=== PATIENT | female | born 1990 | race Two or more races ===

== ENCOUNTER → 2020-03-09 13:46 | Outpatient (BNVA) | payer OTHER, MEDICAID, SELFPAY | PROVIDERS: PCP Internal Medicine; Visit Provider Internal Medicine | DX: Z76.89 Persons encountering health services in other specified circumstances (principal) ==

== ENCOUNTER 2020-03-28 10:44 | Emergency (ER) | payer OTHER, MEDICAID, SELFPAY ==
[2020-03-28 10:49] VITALS: BP 124/60; PULSE 96; RESP 18; TEMP 37.4; O2SAT 99; BMI 27.3
--- NOTE | 2020-03-28 11:45 | ECG_ITS ---
Test Reason : WEAKNESS Blood Pressure : / mmHG Vent. Rate : 065 BPM Atrial Rate : 065 BPM P-R Int : 136 ms QRS Dur : 080 ms QT Int : 378 ms P-R-T Axes : 046 047 040 degrees QTc Int : 393 ms Normal sinus rhythm with sinus arrhythmia Normal ECG No previous ECGs available Referred By: Kathia Christina Electronically Signed By:NAZANIN FLANAGAN MD
--- NOTE | 2020-03-28 12:18 | ED.GENADULT ---
HPI - General Adult General Chief complaint: General Medical Stated complaint: shingles, sob Time Seen by Provider: 03/28/20 11:35 Source: patient Mode of arrival: ambulatory Limitations: no limitations History of Present Illness HPI narrative: 30yoF who is [id number] who is currently 12 weeks due date September 2019 with PMHx of shingles presenting to the ED c c/o shingles rash to upper lip and a separate complaint of sob and b/l anterior wall chest discomfort for the past week. Reports in June there were new rugs place and since then she has been having intermittent asthma exacerbations although this feels worse. Patient reports the shortness of breath is worse with any type of activity including walking, laying down and even speaking. She denies a cough today along with wheezing. Denies any OBGYN related complaints including fevers, abdominal pain, hematuria, vaginal discharge, vaginal bleeding or dysuria. Patient reports she has a follow-up appointment with her OBGYN at [facility] on April 04. Related Data Home Medications Medication Instructions Recorded Confirmed ibuprofen 800 mg tablet 800 mg PO TID 03/09/20 multivitamin 1 cap PO DAILY 03/09/20 Previous Rx's Medication Instructions Recorded valacyclovir 500 mg tablet 500 mg PO BID 10 Days #20 tab 03/09/20 albuterol sulfate 2 inh INHALATION QID PRN #8.5 g 03/28/20 valacyclovir 500 mg PO BID 3 Days #6 tab 03/28/20 Allergies Allergy/AdvReac Type Severity Reaction Status Date / Time No Known Allergies Allergy Verified 03/28/20 10:56 [No Known Allergies*] Review of Systems Review of Systems: Constitutional : No Fever, No Chills, No Night Sweats, No Fatigue, No Malaise ENT/Mouth : No Hearing loss, No Ear Pain, No Nasal Congestion, No Sinus Pain, No Hoarseness, No sore throat Eyes: No Eye Pain, No Swelling, No Redness, No Foreign Body, No Discharge, No Vision Changes Cardiovascular : + SOB, + Dyspnea on Exertion, + Orthopnea, No Edema, No extremity swelling, No Palpitations Respiratory : No Cough, No Sputum, No Wheezing, No Dyspnea Gastrointestinal : No Nausea, No Vomiting, No Diarrhea, No abdominal Pain, No Hematochezia, No Melena Genitourinary : No irregular bleeding, No Dysuria, No Urinary Frequency, No Hematuria, No Urinary Incontinence, No Urgency, No Flank Pain, No Urinary Flow Changes, No Hesitancy, Vaginal bleeding or discharge Musculoskeletal : No joint pain, No Myalgias, No Joint Swelling Skin : + rash, No Skin Lesions, Neuro : No Weakness, No Numbness, No Paresthesias, No Dizziness, No Headache Heme/Lymph: No Lymphadenopathy Yes all other systems are reviewed and are negative [facility] Past Medical History Attestation statement: The following information was validated with the patient. Medical History (Updated 03/28/20 @ 15:28 by CIELO Wang) Herpes zoster conjunctivitis of left eye Surgical History (Updated 03/28/20 @ 10:55 by Sri Kenney) History of bladder surgery Social History Social History Advance Directives: No Advance Directives Information Provided: Yes Physical Exam Vital Signs: Vital Signs: Vital Signs Temp Pulse Resp BP Pulse Ox 03/28/20 10:49 99.4 F 96 18 124/60 99 Body Mass Index 27.3 vital signs have been reviewed as normal and appeared to be correct. Blood pressure normal. Heart rate normal. Respiration rate normal. Temperature normal. Oxygen saturation normal. Appearance: Alert. Oriented X3. No acute distress. Head: Normal external exam. Normocephalic. Atraumatic. No Nayak signs noted. No raccoon eyes noted Eyes: PERRLA. EOMI. Conjunctiva and sclera normal. Eyelids normal. ENT: EAC normal. TM's Normal. Pharynx normal. Uvula midline. Moist mucous membranes. No trismus noted. No drooling noted. No muffled voice noted. Neck: Normal inspection. Neck supple. FROM. No adenopathy. Thyroid Normal. No meningeal signs. No neck mass noted. CVS: Normal heart rate and rhythm. Heart sound normal. No murmurs noted. Pulses normal throughout. Respiratory: No respiratory distress. Painless inspiration. Breath sounds normal. No wheezes/rales/rhonchi noted. Chest nontender. No accessory muscle usage noted or decreased air movement noted. Abdomen: Soft and nontender. Bowel sounds normal in all 4 quadrants. No distention noted. No organomegaly noted. No visible injury noted. Back: No CVA tenderness. Full range of motion noted. Skin: To upper lip there are shallow painful vesicles on an erythematous base consistent with herpes simplex. No streaking/induration/drainage noted. Otherwise the rest of the Skin warm and dry. Normal skin color. Normal skin turgor. No lacerations noted. Extremities: No lower extremity edema. Extremities exhibit normal range of motion. Extremities nontender. Neuro: Oriented X 3. No motor deficit. No sensory deficit. Reflexes normal. Course Course Course Narrative: 11:45AM - 30yoF who is [id number] who is currently 12 weeks due date September 2019 with PMHx of asthma and shingles presenting to the ED c c/o shingles rash to upper lip and a separate complaint of sob and b/l anterior wall chest discomfort for the past week. The shortness of breath is worse with any type of activity including walking, laying down and speaking. - will start the patient on antivirals for her recurrent shingles infection. - Plan: Labs including D-dimer, EKG then re-evaluate. Patient initially requested a chest x-ray then was told the risks and declined at this time. Reevaluation(s) Reevaluation #1: - D-dimer elevated at 246 otherwise all other labs are within normal limits. Serum quant appropriately elevated. UA within normal limits no evidence of a UTI. - Due to patient's D-dimer being elevated a CTA of her chest was ordered to evaluate for possible PE. Risks and benefits were explained to the patient and she is agreeable to the CTA. Will re-evaluate. Time: 14:36 Reevaluation #2: CTA negative for PE. Will DC home with antivirals for herpes simplex on the upper lip. Along with albuterol inhaler and instructions to return if any new or worsening symptoms to follow-up with primary care/insulation blanket maker as scheduled. Patient understands agrees the plan. Time: 15:29 Medical Decision Making Lab Data Lab results reviewed: Yes I reviewed the patient's lab results. Result diagrams: 03/28/20 12:39 03/28/20 12:39 Labs: Lab Results 03/28/20 03/28/20 03/28/20 Range/Units 12:39 12:39 12:39 WBC 10.0 (4.8-10.8) X10*3/uL RBC 4.05 L (4.20-5.50) X10*6/uL Hgb 12.4 (12.0-16.0) g/dl Hct 37.8 (37-47) % MCV 93.3 (80-98) fL MCH 30.6 (27.0-33.0) pg MCHC 32.8 (31.0-35.0) g/dl RDW 12.2 (11.0-16.0) % Plt Count 281 (160-400) X10*3/uL MPV 9.6 (9.4-12.3) fL Immature Gran % (Auto) 0.3 (0.0-0.4) % Neut % (Auto) 74.0 H (45-73) % Lymph % (Auto) 18.6 L (20-40) % [place] % (Auto) 6.4 (2-11) % Eos % (Auto) 0.3 (0-4) % Baso % (Auto) 0.4 (0-2) % Lymph # (Auto) 1.9 (1.2-4.9) X10*3/uL [place] # (Auto) 0.6 (0.1-1.2) X10*3/uL Eos # (Auto) 0.0 (0.0-0.4) X10*3/uL Baso # (Auto) 0.0 (0.0-0.2) X10*3/uL Abs Immat Gran (auto) 0.03 (0.00-0.03) X10*3/uL Absolute Neuts (auto) 7.4 (2.0-8.3) X10*3/uL Absolute Nucleated RBC 0.000 (0.0-0.012) X10*3/uL Nucleated RBC % (auto) 0.0 (0.0-0.2) /100WBC Hold Purple Top PT 12.1 (10.8-13.0) SEC INR 1.0 (0.9-1.1) D-Dimer NG/ML Sodium 137 (135-145) mmol/L Potassium 4.0 (3.3-5.1) mmol/l Chloride 104 (96-108) mmol/L Carbon Dioxide 22 (22-29) mmol/L Anion Gap 15 (12-20) BUN 7 L (9-16) mg/dL Creatinine 0.58 (0.5-1.4) mg/dL Estim Creat Clear Calc 125.3 Estimated GFR > 60 Random Glucose 82 (60-115) mg/dL Calcium 8.9 (8.4-10.2) mg/dL B-Natriuretic Peptide (<100) pg/mL Beta HCG, Quant mIU/mL Urine Color Urine Appearance Urine pH (5.0-8.0) Ur Specific [place] (1.005-1.025) Urine Protein (NEG-TRACE) MG/DL Urine Glucose (UA) (NEG) MG/DL Urine Ketones (NEG) MG/DL Urine Blood (NEG) Urine Nitrite (NEG) Ur Leukocyte Esterase (NEG) Urine RBC (0) /HPF Urine WBC (0-4) /HPF Ur Squamous Epith Cells /LPF Ur Renal Epithelial Cell /LPF Urine Bacteria /LPF Urine Mucus /LPF 03/28/20 03/28/20 03/28/20 Range/Units 12:39 12:39 12:39 WBC (4.8-10.8) X10*3/uL RBC (4.20-5.50) X10*6/uL Hgb (12.0-16.0) g/dl Hct (37-47) % MCV (80-98) fL MCH (27.0-33.0) pg MCHC (31.0-35.0) g/dl RDW (11.0-16.0) % Plt Count (160-400) X10*3/uL MPV (9.4-12.3) fL Immature Gran % (Auto) (0.0-0.4) % Neut % (Auto) (45-73) % Lymph % (Auto) (20-40) % [place] % (Auto) (2-11) % Eos % (Auto) (0-4) % Baso % (Auto) (0-2) % Lymph # (Auto) (1.2-4.9) X10*3/uL [place] # (Auto) (0.1-1.2) X10*3/uL Eos # (Auto) (0.0-0.4) X10*3/uL Baso # (Auto) (0.0-0.2) X10*3/uL Abs Immat Gran (auto) (0.00-0.03) X10*3/uL Absolute Neuts (auto) (2.0-8.3) X10*3/uL Absolute Nucleated RBC (0.0-0.012) X10*3/uL Nucleated RBC % (auto) (0.0-0.2) /100WBC Hold Purple Top SEE NOTE PT (10.8-13.0) SEC INR (0.9-1.1) D-Dimer 246 NG/ML Sodium (135-145) mmol/L Potassium (3.3-5.1) mmol/l Chloride (96-108) mmol/L Carbon Dioxide (22-29) mmol/L Anion Gap (12-20) BUN (9-16) mg/dL Creatinine (0.5-1.4) mg/dL Estim Creat Clear Calc Estimated GFR Random Glucose (60-115) mg/dL Calcium (8.4-10.2) mg/dL B-Natriuretic Peptide (<100) pg/mL Beta HCG, Quant 35930 mIU/mL Urine Color Urine Appearance Urine pH (5.0-8.0) Ur Specific [place] (1.005-1.025) Urine Protein (NEG-TRACE) MG/DL Urine Glucose (UA) (NEG) MG/DL Urine Ketones (NEG) MG/DL Urine Blood (NEG) Urine Nitrite (NEG) Ur Leukocyte Esterase (NEG) Urine RBC (0) /HPF Urine WBC (0-4) /HPF Ur Squamous Epith Cells /LPF Ur Renal Epithelial Cell /LPF Urine Bacteria /LPF Urine Mucus /LPF 03/28/20 03/28/20 Range/Units 12:39 12:39 WBC (4.8-10.8) X10*3/uL RBC (4.20-5.50) X10*6/uL Hgb (12.0-16.0) g/dl Hct (37-47) % MCV (80-98) fL MCH (27.0-33.0) pg MCHC (31.0-35.0) g/dl RDW (11.0-16.0) % Plt Count (160-400) X10*3/uL MPV (9.4-12.3) fL Immature Gran % (Auto) (0.0-0.4) % Neut % (Auto) (45-73) % Lymph % (Auto) (20-40) % [place] % (Auto) (2-11) % Eos % (Auto) (0-4) % Baso % (Auto) (0-2) % Lymph # (Auto) (1.2-4.9) X10*3/uL [place] # (Auto) (0.1-1.2) X10*3/uL Eos # (Auto) (0.0-0.4) X10*3/uL Baso # (Auto) (0.0-0.2) X10*3/uL Abs Immat Gran (auto) (0.00-0.03) X10*3/uL Absolute Neuts (auto) (2.0-8.3) X10*3/uL Absolute Nucleated RBC (0.0-0.012) X10*3/uL Nucleated RBC % (auto) (0.0-0.2) /100WBC Hold Purple Top PT (10.8-13.0) SEC INR (0.9-1.1) D-Dimer NG/ML Sodium (135-145) mmol/L Potassium (3.3-5.1) mmol/l Chloride (96-108) mmol/L Carbon Dioxide (22-29) mmol/L Anion Gap (12-20) BUN (9-16) mg/dL Creatinine (0.5-1.4) mg/dL Estim Creat Clear Calc Estimated GFR Random Glucose (60-115) mg/dL Calcium (8.4-10.2) mg/dL B-Natriuretic Peptide < 10 (<100) pg/mL Beta HCG, Quant mIU/mL Urine Color YELLOW Urine Appearance HAZY Urine pH 7.5 (5.0-8.0) Ur Specific [place] 1.020 (1.005-1.025) Urine Protein NEG (NEG-TRACE) MG/DL Urine Glucose (UA) NEG (NEG) MG/DL Urine Ketones NEG (NEG) MG/DL Urine Blood NEG (NEG) Urine Nitrite NEG (NEG) Ur Leukocyte Esterase TRACE H (NEG) Urine RBC 0 (0) /HPF Urine WBC 5-9 H (0-4) /HPF Ur Squamous Epith Cells 1+ /LPF Ur Renal Epithelial Cell 1+ /LPF Urine Bacteria 1+ /LPF Urine Mucus 1+ /LPF Imaging Data CTA of chest for PE: Attestation: I personally reviewed and interpreted this imaging study as follows: Radiologist's impression: IMPRESSION: Normal CT chest. No evidence of pulmonary embolism. VTE: negative ECG Data Attestation: I personally reviewed and interpreted this ECG as follows: Interpretation: Normal sinus rhythm with a ventricular rate of 65 with a normal CO interval, normal QRS duration and normal QT/QTC interval. No acute ischemic changes. No prior EKGs to compare to. Critical Care Time Critical Care Time Critical Care Time: Yes Total Critical Care Time: 60 Attestation: I personally attest to this time spent taking care of the patient Discharge Plan Discharge Clinical Impression: Herpes labialis Dyspnea Qualifiers: Dyspnea type: unspecified Qualified Code(s): R06.00 - Dyspnea, unspecified Patient Disposition: Home, Self-Care Instructions: Oral Herpes Simplex Virus Infections (ED), Dyspnea (ED) Prescriptions: New valacyclovir 1 gram tablet 500 mg PO BID 3 Days Qty: 6 RF: 3 albuterol sulfate 90 mcg/actuation HFA aerosol inhaler 2 inh inhalation QID PRN (Reason: shortness of breath or wheezing) Qty: 8.5 RF: 0 No Action ibuprofen 800 mg tablet 800 mg PO TID RF: 0 multivitamin Capsule 1 cap PO DAILY RF: 0 valacyclovir [Valtrex] 500 mg tablet 500 mg PO BID 10 Days Qty: 20 RF: 1 Referrals: Shirin Sin MD [Primary Care Provider] - 2 days Stand Alone Forms: Work/School Release Print Language: Tamazight
[2020-03-28 13:03] LABS: MANUAL DIFF FLAG NO
[2020-03-28 13:08] LABS: Glucose Urine UA NEG (NEG); Leukocyte Esterase Urine TRACE (NEG); Nitrite Urine NEG (NEG); PH 7.5 (5.0-8.0); Urine Blood NEG (NEG); Urine Ketones NEG (NEG); Urine Protein NEG (NEG-TRACE)
[2020-03-28 13:09] LABS: Appearance Urine HAZY; Color Urine YELLOW
[2020-03-28 13:18] LABS: Bacteria Urine 1+ /LPF; Mucus Urine 1+ /LPF; RBC Urine 0 /HPF (0); Renal Epithelial Cells Urine 1+ /LPF; Squamous Epithelial Cell Urine 1+ /LPF
[2020-03-28 13:22] LABS: Basophils Percent Auto 0.4 % (0-2); Eosinophils Percent Auto 0.3 % (0-4); Hematocrit 37.8 % (37-47); Hemoglobin 12.4 g/dl (12.0-16.0); Imm Gran Abs Auto 0.03 X10*3/uL (0.00-0.03); Imm Gran Pct Auto 0.3 % (0.0-0.4); Lymphocytes Absolute Auto 1.9 X10*3/uL (1.2-4.9); Lymphocytes Percent Auto 18.6 % (20-40); Mean Corpuscular HGB Conc 32.8 g/dl (31.0-35.0); Mean Corpuscular Hemoglobin 30.6 pg (27.0-33.0); Mean Corpuscular Volume 93.3 fL (80-98); Mean Platelet Volume 9.6 fL (9.4-12.3); Monocytes Absolute Auto 0.6 X10*3/uL (0.1-1.2); Monocytes Percent Auto 6.4 % (2-11); Neutrophils Absolute Auto 7.4 X10*3/uL (2.0-8.3); Platelet Count 281 X10*3/uL (160-400); Prothrombin Time 12.1 SEC (10.8-13.0); Red Blood Count 4.05 X10*6/uL (4.20-5.50); Red Cell Distribution Width 12.2 % (11.0-16.0)
[2020-03-28 13:26] LABS: D Dimer 246 NG/ML
[2020-03-28 13:33] LABS: Anion Gap 15 (12-20); Blood Urea Nitrogen 7 mg/dL (9-16); Calcium 8.9 mg/dL (8.4-10.2); Carbon Dioxide 22 mmol/L (22-29); Chloride 104 mmol/L (96-108); Creatinine Clr Calc Pharmacy 125.3; Estimated Glomerular Filt Rate > 60; Glucose Random 82 mg/dL (60-115); Sodium 137 mmol/L (135-145)
--- NOTE | 2020-03-28 13:44 | CT_ITS ---
EXAMINATION: CT ANGIOGRAM OF THE CHEST WITH AND WITHOUT CONTRAST (CT PULMONARY ANGIOGRAM FOR PE) CLINICAL INFORMATION: Reason for Exam pt c sob/CP 12 weeks COMPARISON: Chest x-ray 12/13/2019 TECHNIQUE: Oral contrast was administered. Prior to contrast administration, noncontrast localization images were obtained. Subsequently, multidetector volumetric imaging was performed from the thoracic inlet to below the diaphragms following the administration of 65 mLOmnipaque 350 intravenous contrast. No contrast reaction reported Sagittal, coronal, and MIP oblique sagittal reformatted images were obtained on the CT workstation, uploaded to PACS, and reviewed. This CT examination was performed using dose optimization techniques as appropriate, variously including the following: *Automated exposure control *Adjustment of mA and/or kV according to patient size (this includes techniques or standardized protocols for targeted exams where dose is matched to indication/reason for exam; i.e. extremities or head) *Use of iterative reconstruction technique Total exam dose-length product 159 mGy-cm FINDINGS: QUALITY OF STUDY/CONTRAST BOLUS: Satisfactory. PULMONARY ARTERIES: No central or segmental pulmonary emboli. THORACIC AORTA: No aneurysm or dissection. LUNG: No focal consolidation, nodules or masses. PLEURA: No pleural effusion or pneumothorax. MEDIASTINUM: Normal heart size. No pericardial effusion. No hilar or mediastinal lymphadenopathy. No evidence of septal bowing or right heart strain. CHEST WALL/AXILLA: No axillary or internal mammary lymphadenopathy. OSSEOUS STRUCTURES: No acute or suspicious osseous abnormality. UPPER ABDOMEN: Unremarkable. No reflux of contrast into the hepatic veins to suggest elevated right heart pressures. CT/CT angio chest PE protocol IMPRESSION: Normal CT chest. No evidence of pulmonary embolism. VTE: negative
--- NOTE | 2020-03-28 13:56 | PC.NURSE ---
pt without sob no vomiting but reports nausea iv access gained
[2020-03-28 14:00] VITALS: BP 118/63; PULSE 81; RESP 16; TEMP 37.4; O2SAT 99
[2020-03-28 14:09] LABS: B Type Natriuretic Peptide < 10 pg/mL (<100)
[2020-03-28] MEDS: 0.9 % Sodium Chloride 1,000 ML 999 ML IVCONT (14:09)
[2020-03-28 14:12] LABS: HCG Quantitative 56633 mIU/mL
[2020-03-28] MEDS: iohexoL 350 MG/ML 100 ML INFUS..BTL 65 ML IV (14:54)
== END 2020-03-28 16:12 | disposition home or self-care (01) ==
PROVIDERS: Physician Assistant Medical; Emergency Provider Emergency Medicine; PCP Internal Medicine
DX: B00.1 Herpesviral vesicular dermatitis (principal); B02.9 Zoster without complications; R06.02 Shortness of breath; Z79.899 Other long term (current) drug therapy
CPT/HCPCS: 36415; 71275; 80048; 81001; 83880; 84702; 85025; 85379; 85610; 87086; 93005; 96360; 99284; 99291; Q9967

== ENCOUNTER 2020-04-07 15:20 | Emergency (ER) | payer OTHER, MEDICAID, SELFPAY ==
[2020-04-07 15:52] VITALS: BP 112/58; PULSE 82; RESP 18; TEMP 37.3; O2SAT 98; BMI 30.4
--- NOTE | 2020-04-07 16:12 | ED_ITS ---
HPI - General Adult General Chief complaint: General Medical Stated complaint: Headaches/exposed to Covid Time Seen by Provider: 04/07/20 15:32 Source: patient Mode of arrival: ambulatory History of Present Illness HPI narrative: 30yoF who is [id number] who is currently 12 weeks , with PMHx shingles presenting to the ED requesting COVID-19 testing due to co-worker testing positive yesterday. Reports mild headache, chronic SOB due to asthma, unchanged, and chills. Patient was recently seen and treated in the ED on 03/28 for SOB/CP, had full workup including CTA that was negative for PE. Patient reports symptoms are unchanged since that visit. Denies fever, CP, new or worsening SOB, abdominal pain, nausea/vomiting, dysuria/hematuria, vaginal bleeding or discharge Onset (ago): day(s) Related Data Home Medications Medication Instructions Recorded Confirmed ibuprofen 800 mg tablet 800 mg PO TID 03/09/20 multivitamin 1 cap PO DAILY 03/09/20 Previous Rx's Medication Instructions Recorded valacyclovir 500 mg tablet 500 mg PO BID 10 Days #20 tab 03/09/20 acyclovir 800 mg PO BID 5 Days #10 tab 03/28/20 levalbuterol HCl [Xopenex] 0.63 mg INHALATION TID PRN #72 ml 03/28/20 levalbuterol tartrate [Xopenex HFA] 2 puff INHALATION Q4-6H PRN #15 g 03/28/20 Allergies Allergy/AdvReac Type Severity Reaction Status Date / Time No Known Allergies Allergy Verified 03/28/20 10:56 [No Known Allergies*] Review of Systems Review of Systems: Constitutional: No Weight loss, No Fever, + Chills ENT/Mouth: No Ear Pain, No Nasal Congestion, No Sinus Pain, No Hoarseness, No sore throat, +headache Cardiovascular: No Chest Pain, +chronic SOB Respiratory: No Cough, No Sputum, No Wheezing Gastrointestinal: No Nausea, No Vomiting, No Diarrhea, No Constipation, No Abdominal pain Genitourinary:, No Dysuria, No Urinary Frequency, No Hematuria Musculoskeletal: No joint pain, No Myalgias, No Joint Swelling Skin: No Skin Lesions, No rash Yes all other systems are reviewed and are negative PMFSH Past Medical History Attestation statement: The following information was validated with the patient. Source: old records reviewed and nursing notes reviewed Medical History (Updated 03/29/20 @ 00:00 by Rian Hubbard) Herpes zoster conjunctivitis of left eye Surgical History (Updated 03/28/20 @ 10:55 by Sri Kenney) History of bladder surgery Social History Social History Alcohol intake: never Smoked in Last 30 Days: No Use of substances other than those prescribed or required for medical reasons: No Advance Directives: No Advance Directives Information Provided: Yes Physical Exam Vital Signs: Vital Signs: Last Vital Signs Temp 99.1 F 04/07/20 15:52 Pulse 82 04/07/20 15:52 Resp 18 04/07/20 15:52 BP 112/58 L 04/07/20 15:52 Pulse Ox 98 04/07/20 15:52 Body Mass Index 30.4 Const: General: cooperative and healthy appearing Orientation/consciousness: patient oriented x3 Limitations: no limitations HENMT: Head: Yes normal to inspection Ears: hearing grossly normal bilaterally General nose exam: Normal external nose present Face and sinus: Yes normal facial exam Eyes: General: appearance normal, both eyes and all related structures EOM: EOMs intact bilaterally Neck: Neck: Yes normal visual inspection Resp: Effort & Inspection: normal respiratory effort Auscultation: clear to auscultation bilaterally, no crackles, no rhonchi and no wheezes Cardio: Rate: regular rate Heart sounds: S1 normal heart sound present and S2 normal heart sound present GI: Inspection: Yes normal to inspection Palpation (GI): Soft to palpation, nontender, no guarding and not rigid Skin: Rashes: no rashes Wounds: no wounds Neuro: General: patient oriented x3 Gait exam (Neuro): Normal gait present Extrem: General: Yes normal to inspection Medical Decision Making MDM Narrative Medical decision making narrative: 30yoF who is [id number] who is currently 12 weeks , with PMHx shingles presenting to the ED requesting COVID-19 testing due to co-worker testing positive yesterday. Reports mild headache, chronic SOB due to asthma, unchanged, and chills. On exam VSS, NAD/well- appearing, lungs CTA, no related complaints. Concern for viral syndrome/COVID-19 Plan: COVID-19 testing, OBGYN follow-up Discharge Plan Discharge Prescriptions: No Action levalbuterol HCl [Xopenex] 0.63 mg/3 mL solution for nebulization 0.63 mg inhalation TID PRN (Reason: shortness of breath or wheezing) Qty: 72 RF: 0 levalbuterol tartrate [Xopenex HFA] 45 mcg/actuation HFA aerosol inhaler 2 puff inhalation Q4-6H PRN (Reason: shortness of breath or wheezing) Qty: 15 RF: 0 acyclovir 800 mg tablet 800 mg PO BID 5 Days Qty: 10 RF: 0 ibuprofen 800 mg tablet 800 mg PO TID RF: 0 multivitamin Capsule 1 cap PO DAILY RF: 0 valacyclovir [Valtrex] 500 mg tablet 500 mg PO BID 10 Days Qty: 20 RF: 1
== END 2020-04-07 16:26 | disposition home or self-care (01) ==
PROVIDERS: Physician Assistant; Emergency Provider Emergency Medicine; PCP Internal Medicine
DX: O26.91 Pregnancy related conditions, unspecified, first trimester (principal); R51.9 Headache, unspecified; Z20.828 Contact with and (suspected) exposure to other viral communicable diseases; Z79.899 Other long term (current) drug therapy; Z3A.12 12 weeks gestation of pregnancy
CPT/HCPCS: 99283; 99284; U0003

== ENCOUNTER → 2020-05-02 09:21 | Outpatient (BNVA) | payer OTHER, MEDICAID, SELFPAY | PROVIDERS: PCP Internal Medicine; Referring Provider Internal Medicine; Visit Provider Student in an Organized Health Care Education/Training Program | DX: Z76.89 Persons encountering health services in other specified circumstances (principal) ==

== ENCOUNTER → 2020-05-22 10:09 | Outpatient (BNVA) | payer OTHER, MEDICAID, SELFPAY | PROVIDERS: Visit Provider Student in an Organized Health Care Education/Training Program | DX: Z76.89 Persons encountering health services in other specified circumstances (principal) ==

== ENCOUNTER 2020-07-25 09:59 | Outpatient (REF) | payer OTHER, MEDICAID, SELFPAY | END 2020-07-25 10:00 | disposition home or self-care (01) | LOC: HO.LAB 09:59 | PROVIDERS: Visit Provider Internal Medicine | DX: Z20.822 Contact with and (suspected) exposure to COVID-19 (principal) | CPT/HCPCS: 36415; C9803; U0003; U0005 ==

== ENCOUNTER → 2020-07-27 09:47 | Outpatient (BNVA) | payer OTHER, MEDICAID, SELFPAY | PROVIDERS: PCP Internal Medicine; Visit Provider Internal Medicine ==

== ENCOUNTER 2020-07-28 08:29 | Emergency (ER) | payer OTHER, MEDICAID, SELFPAY ==
[2020-07-28 09:05] VITALS: BP 130/68; PULSE 98; RESP 17; TEMP 36.7; O2SAT 98; BMI 33.0
[2020-07-28] MEDS: Tetracaine HCl/PF 0.5% Oph Sol 4 ML DROPS 1 DROP EYE-BOTH (09:11)
[2020-07-28] MEDS: Fluorescein Sodium STRIP 1 STRIP EYE-BOTH (09:11)
--- NOTE | 2020-07-28 09:58 | ED_ITS ---
HPI - Eye Problem General Chief complaint: Eye Problems Stated complaint: EYE ISSUE Time Seen by Provider: 07/28/20 08:49 Source: patient Mode of arrival: ambulatory Limitations: no limitations History of Present Illness HPI Narrative: Patient comes to emergency room complaining of an outbreak of herpes zoster in her left eye. Patient states she has had multiple episodes of herpes zoster on the left eye throughout her life. However, at this time she is at 29 weeks of gestational age in her 2nd , states in this she has had for outbreaks. Patient complaining of vesicle starting to appear ar ound upper and lower eyelids. Patient has no actual eye pain, denies pain with ocular movement. No fever no chills, denies rash anywhere else in her body. Patient states that yesterday she went to see her monogram machine operator, states she does not remember the name, it is possible that it was Dr. Hall. She was given erythromycin ointment for her eye, since yesterday she did not have any vesicles. Patient states that she got a prescription for acyclovir to be picked up at her pharmacy in case that the rash got worse. The rash did progress, however the patient wanted to be checked at the emergency room because the patient did not know if the rash had progressed enough to start the antiviral medication. Related Data Home Medications Medication Instructions Recorded Confirmed multivitamin 1 cap PO DAILY 03/09/20 05/02/20 albuterol sulfate 0.63 mg/3 mL 0.63 mg INHALATION Q4-6H PRN 05/02/20 05/02/20 solution for nebulization albuterol sulfate 90 mcg/actuation 2 puff INHALATION Q6H PRN 05/02/20 05/02/20 aerosol inhaler Previous Rx's Medication Instructions Recorded levalbuterol HCl [Xopenex] 0.63 mg INHALATION TID PRN #72 ml 03/28/20 levalbuterol tartrate [Xopenex HFA] 2 puff INHALATION Q4-6H PRN #15 g 03/28/20 Allergies Allergy/AdvReac Type Severity Reaction Status Date / Time No Known Allergies Allergy Verified 05/22/20 10:10 [No Known Allergies*] Review of Systems Review of Systems: Constitutional : No Weight loss, No Fever, No Chills, No Night Sweats, No Fatigue, No Malaise ENT/Mouth : No Hearing loss, No Ear Pain, No Nasal Congestion, No Sinus Pain, No Hoarseness, No sore throat, No Rhinorrhea, No Swallowing Difficulty Eyes: No Eye Pain, small vesicles in the medial aspect of the eye lids superior and inferior Cardiovascular : No Chest Pain, No SOB, No Dyspnea on Exertion, No Orthopnea, No Edema, No Palpitations Respiratory : No Cough, No Sputum, No Wheezing, No Smoke Exposure, No Dyspnea Gastrointestinal : No Nausea, No Vomiting, No Diarrhea, No Constipation, No abdominal Pain, No Hematochezia, No Melena Genitourinary : no irregular bleeding, No Dysuria, No Urinary Frequency, No Hematuria, No Urinary Incontinence, No Urgency, No Flank Pain, No Urinary Flow Changes, No Hesitancy Musculoskeletal : No joint pain, No Myalgias, No Joint Swelling Skin : No Skin Lesions, No rash Neuro : No Weakness, No Numbness, No Paresthesias, No Loss of Consciousness, No Dizziness, No Headache Psych : No Anxiety/Panic, No Depression, No SI/HI/AH/VH, No Social Issues, Heme/Lymph: No Bruising, No Bleeding,No Lymphadenopathy Endocrine : No Polyuria, No Polydipsia, No Temperature Intolerance PMF Past Medical History Medical History Annual physical exam Herpes zoster conjunctivitis of left eye Shortness of breath at rest Surgical History History of bladder surgery History of wisdom tooth extraction Family History Family History Father Hypertension Prostate cancer Chronic mental illness Substance abuse Mother Low blood pressure Sister Heart disease Paternal Grandmother Breast cancer Paternal Aunt Breast cancer Family/Other Depression Social History Social History Alcohol intake: never Smoking Status: Never smoker Advance Directives: No Advance Directives Information Provided: No Physical Exam Vital Signs: Vital Signs: Last Vital Signs Temp 98.0 F 07/28/20 09:05 Pulse 98 07/28/20 09:05 Resp 17 07/28/20 09:05 BP 130/68 07/28/20 09:05 Pulse Ox 98 07/28/20 09:05 Body Mass Index 33.0 Appearance: Alert. Oriented X3. No acute distress. Eyes: Pupils equal, round and reactive to light. No pain with eye movements. Fluorescein stain does not show any dendritic lesions in sclera or cornea. Patient does have small vesicles at this time not fluid-filled in upper and lower eyelids of the left eye in the medial aspect, Eye pressure 15 to 18 mmHg ENT: Pharynx normal. Neck: Normal inspection. Neck supple. No lymph nodes noted. No crepitus CVS: Normal heart rate and rhythm. Pulses normal. Normal S1 and S2 Respiratory: No respiratory distress. Breath sounds normal. No Wheezing. No rales Abdomen: Soft and nontender. No rigidity. No distention. good BS x4 Skin: Skin warm and dry. Normal skin color. Normal skin turgor. Extremities: No lower extremity edema. No lower extremity edema. No Lacerations. No Rash Neuro: Oriented X 3. No motor deficit. No sensory deficit. Moving all extermities. No slurred speech. Course Course Course Narrative: I discussed with our pharmacist whether the patient should be on Valtrex versus acyclovir. Our pharmacist recommend Valtrex, as it does not need does readjustment. I also discussed the patient with Dr. Hebert, we will go ahead and follow ophthalmology's treatment recommendation. I spoke with Dr. Hall, Dr. Hall spoke to the patient's OBGYN yesterday and it was agreed that acyclovir is the treatment of choice for the patient Patient called her pharmacy and confirmed that the prescription is ready for pickup. I discussed with the patient that Dr. Hall wants to see the patient on Thursday. Discharge Plan Discharge Clinical Impression: Herpes zoster conjunctivitis of left eye Patient Disposition: Home, Self-Care Instructions: Shingles (ED) Additional Instructions: Please call your monogram machine operator on Thursday. Please follow-up with your primary care physician tomorrow. If you have any worsening or new symptoms, please return to the emergency room or call 911 Prescriptions: No Action levalbuterol HCl [Xopenex] 0.63 mg/3 mL solution for nebulization 0.63 mg inhalation TID PRN (Reason: shortness of breath or wheezing) Qty: 72 RF: 0 levalbuterol tartrate [Xopenex HFA] 45 mcg/actuation HFA aerosol inhaler 2 puff inhalation Q4-6H PRN (Reason: shortness of breath or wheezing) Qty: 15 RF: 0 albuterol sulfate 90 mcg/actuation HFA aerosol inhaler 2 puff inhalation Q6H PRNRF: 0 albuterol sulfate 0.63 mg/3 mL solution for nebulization 0.63 mg inhalation Q4-6H PRNRF: 0 multivitamin Capsule 1 cap PO DAILY RF: 0 Referrals: Jorge A Hall [Physician] - 2 days
--- NOTE | 2020-07-28 10:56 | PC.NURSE ---
NO COMPLAINTS OF ABDOMINAL OR BACK PAIN, NO VAG BLEEDING.
== END 2020-07-28 11:01 | disposition home or self-care (01) ==
PROVIDERS: Emergency Provider Emergency Medicine; PCP Internal Medicine
DX: B02.31 Zoster conjunctivitis (principal); H57.12 Ocular pain, left eye
CPT/HCPCS: 99283

== ENCOUNTER 2020-08-28 15:18 | Outpatient (REF) | payer OTHER, MEDICAID, SELFPAY ==
[2020-08-29 09:21] LABS: SARS COV2 PCR INHOUSE NEGATIVE (Negative)
== END 2020-08-28 15:19 | disposition home or self-care (01) ==
LOC: HO.LAB 15:18
PROVIDERS: Visit Provider Internal Medicine
DX: Z20.822 Contact with and (suspected) exposure to COVID-19 (principal)
CPT/HCPCS: C9803; U0003

== ENCOUNTER 2020-09-25 10:16 | Outpatient (REF) | payer OTHER, MEDICAID, SELFPAY ==
[2020-09-25 10:35] LABS: COVID-19 Test Negative (Negative)
== END 2020-09-25 10:17 | disposition home or self-care (01) ==
LOC: HO.LAB 10:16
PROVIDERS: Visit Provider Internal Medicine
DX: Z20.822 Contact with and (suspected) exposure to COVID-19 (principal)
CPT/HCPCS: 36415; 87635; C9803

== ENCOUNTER 2020-12-08 15:14 | Emergency (ER) | payer OTHER, MEDICAID, SELFPAY ==
[2020-12-08 15:16] VITALS: BP 132/69; PULSE 77; RESP 16; TEMP 37.1; O2SAT 98; BMI 30.8
--- NOTE | 2020-12-08 15:38 | PC.NURSE ---
PT GIVEN INFO ON T-DAP AND STATES SHE HAS HAD THE T-DAP ALREADY, BECAUSE SHE JUST HAD A BABY WHO IS 10 MONTHS OLD AND THEY UPDATED HER.
--- NOTE | 2020-12-08 15:57 | ED_ITS ---
HPI - Wound/Laceration General Chief Complaint: Wound/Laceration Stated Complaint: Laceration Time Seen by Provider: 12/08/20 15:57 Related Data Home Medications Medication Instructions Recorded Confirmed multivitamin 1 cap PO DAILY 03/09/20 10/18/20 albuterol sulfate 0.63 mg/3 mL 0.63 mg INHALATION Q4-6H PRN 05/02/20 10/18/20 solution for nebulization albuterol sulfate 90 mcg/actuation 2 puff INHALATION Q6H PRN 05/02/20 10/18/20 aerosol inhaler valacyclovir 500 mg tablet 500 mg PO BID 10/18/20 10/18/20 Previous Rx's Medication Instructions Recorded levalbuterol HCl [Xopenex] 0.63 mg INHALATION TID PRN #72 ml 03/28/20 levalbuterol tartrate [Xopenex HFA] 2 puff INHALATION Q4-6H PRN #15 g 03/28/20 Allergies Allergy/AdvReac Type Severity Reaction Status Date / Time No Known Allergies Allergy Verified 10/18/20 23:53 [No Known Allergies*] Review of Systems Constitutional: Constitutional: Denies weight gain and Denies weight loss Cardiovascular: Cardiovascular: Reports no additional cardiovascular complaints Respiratory: Respiratory: Reports no additional respiratory complaints Gastrointestinal: Gastrointestinal: Denies abdominal pain, Denies belching, Denies melena, Denies bloating, Denies change in bowel habits, Denies dyspepsia, Denies heartburn, Denies nausea and Denies vomiting Integumentary/Breasts: Comments: Laceration to right thumb Psychiatric: Psychiatric: Reports no additional psychiatric complaints [facility] [place] Past Medical History Medical History Annual physical exam Herpes zoster conjunctivitis of left eye Herpes zoster of eye Shortness of breath at rest Surgical History History of bladder surgery History of wisdom tooth extraction Family History Family History Father Hypertension Prostate cancer Chronic mental illness Substance abuse Mother Low blood pressure Sister Heart disease Paternal Grandmother Breast cancer Paternal Aunt Breast cancer Family/Other Depression Social History Social History Alcohol intake: never Patient Tobacco Use Status: Never used Tobacco Advance Directives: No Advance Directives Information Provided: No Patient : No Physical Exam Vital Signs: Vital Signs: Last Vital Signs Temp 98.7 F 12/08/20 15:16 Pulse 77 12/08/20 15:16 Resp 16 12/08/20 15:16 BP 132/69 12/08/20 15:16 Pulse Ox 98 12/08/20 15:16 Body Mass Index 30.8 Const: General: healthy appearing, no acute distress and well developed Nutritional Appearance: well nourished Orientation/consciousness: patient oriented x3 Neck: Neck: Yes normal visual inspection, Yes full ROM and Yes trachea midline Thyroid: Thyroid normal Resp: Auscultation: clear to auscultation bilaterally Cardio: Rate: regular rate Rhythm: regular rhythm GI: Inspection: Yes normal to inspection and No distended Palpation (GI): No hepatosplenomegaly present Auscultation: normal bowel sounds Skin: Other: 1 cm R thumb superficial laceration General skin exam: elasticity normal, turgor normal and dry skin Neuro: General: patient oriented x3 Course Course Course Narrative: 30-year-old female here today after sustaining laceration to her right thumb. Patient was cleaning out trash can and cut her thumb on used razor. Patient reports that she had tetanus vaccine 10 weeks ago. Superficial 1 cm laceration. Dermabond applied to Steri-Strips. Patient was instructed to keep the area clean and dry for next 24 hours. Monitor for signs and symptoms of infection. Discharge Plan Discharge Clinical Impression: Laceration Patient Disposition: Home, Self-Care Instructions: Finger Laceration (ED) Additional Instructions: You were seen here today for finger laceration. You are up-to-date with tetanus vaccine. Your laceration was closed with skin glue and Steri-Strips were applied. Make sure you keep your finger dry. Let the Steri-Strips fall off on their own. Observe for drainage or infection. You may return to emergency department if you will experience any concerning symptoms. Prescriptions: No Action levalbuterol HCl [Xopenex] 0.63 mg/3 mL solution for nebulization 0.63 mg inhalation TID PRN (Reason: shortness of breath or wheezing) Qty: 72 RF: 0 levalbuterol tartrate [Xopenex HFA] 45 mcg/actuation HFA aerosol inhaler 2 puff inhalation Q4-6H PRN (Reason: shortness of breath or wheezing) Qty: 15 RF: 0 valacyclovir 500 mg tablet 500 mg PO BID RF: 0 albuterol sulfate 90 mcg/actuation HFA aerosol inhaler 2 puff inhalation Q6H PRNRF: 0 albuterol sulfate 0.63 mg/3 mL solution for nebulization 0.63 mg inhalation Q4-6H PRNRF: 0 multivitamin Capsule 1 cap PO DAILY RF: 0
== END 2020-12-08 16:53 | disposition home or self-care (01) ==
PROVIDERS: Emergency Provider Emergency Medicine; PCP Internal Medicine
DX: S61.011A Laceration without foreign body of right thumb without damage to nail, initial encounter (principal); W45.8XXA Other foreign body or object entering through skin, initial encounter; Y93.E9 Activity, other interior property and clothing maintenance; Y92.9 Unspecified place or not applicable; Y99.9 Unspecified external cause status
CPT/HCPCS: 12001; 99283; 99284

== ENCOUNTER 2021-02-10 17:27 | Emergency (ER) | payer OTHER, MEDICAID, SELFPAY ==
--- NOTE | ~2021-02-10 | XR_ITS ---
EXAMINATION: XR CHEST CLINICAL INFORMATION: SOB. COMPARISON: None TECHNIQUE: Frontal view of the chest was obtained. FINDINGS: No significant abnormality is noted involving the heart, lungs, mediastinum, bony thorax or soft tissues. XR/XR chest 1V IMPRESSION: Unremarkable chest examination.
[2021-02-10 17:31] VITALS: BP 140/77; PULSE 88; RESP 16; TEMP 36.2; O2SAT 98; BMI 31.5
[2021-02-10 18:00] LABS: COVID-19 Test Negative (Negative)
[2021-02-10 20:19] VITALS: BP 132/74; PULSE 79; TEMP 36.9; O2SAT 100
--- NOTE | 2021-02-10 20:46 | ED_ITS ---
HPI - SOB/Dyspnea General Chief Complaint: Dyspnea Stated Complaint: diff breathing Time Seen by Provider: 02/10/21 20:42 Source: patient Mode of arrival: ambulatory Limitations: no limitations History of Present Illness HPI Narrative: Patient with history of asthma with frequent asthma attack been sick for last 3 days with nasal congestion thick yellowish secretions in the morning time with dry cough no fever Related Data Home Medications Medication Instructions Recorded Confirmed multivitamin 1 cap PO DAILY 03/09/20 10/18/20 albuterol sulfate 0.63 mg/3 mL 0.63 mg INHALATION Q4-6H PRN 05/02/20 10/18/20 solution for nebulization albuterol sulfate 90 mcg/actuation 2 puff INHALATION Q6H PRN 05/02/20 10/18/20 aerosol inhaler valacyclovir 500 mg tablet 500 mg PO BID 10/18/20 10/18/20 Previous Rx's Medication Instructions Recorded levalbuterol HCl 0.63 mg/3 mL 0.63 mg INHALATION TID PRN #72 ml 03/28/20 solution for nebulization (Xopenex) levalbuterol tartrate 45 2 puff INHALATION Q4-6H PRN #15 g 03/28/20 mcg/actuation aerosol inhaler (Xopenex HFA) amoxicillin 875 mg-potassium 1 tab PO BID #20 tab 02/10/21 clavulanate 125 mg tablet (Augmentin) prednisone 20 mg tablet 40 mg PO DAILY #10 tab 02/10/21 Allergies Allergy/AdvReac Type Severity Reaction Status Date / Time No Known Allergies Allergy Verified 10/18/20 23:53 [No Known Allergies*] [facility] Past Medical History Medical History Annual physical exam Herpes zoster conjunctivitis of left eye Herpes zoster of eye Shortness of breath at rest Surgical History History of bladder surgery History of wisdom tooth extraction Family History Family History Father Hypertension Prostate cancer Chronic mental illness Substance abuse Mother Low blood pressure Sister Heart disease Paternal Grandmother Breast cancer Paternal Aunt Breast cancer Family/Other Depression Social History Social History Alcohol intake: never Patient Tobacco Use Status: Never used Tobacco Advance Directives: No Advance Directives Information Provided: No Physical Exam Vital Signs: Vital Signs: Last Vital Signs Temp 98.4 F 02/10/21 20:19 Pulse 65 02/10/21 21:03 Resp 16 02/10/21 17:31 BP 132/74 02/10/21 20:19 Pulse Ox 100 02/10/21 20:19 Body Mass Index 31.5 Appearance: Alert. Oriented X3. No acute distress. ENT: Pharynx normal. Oral Mucosa moist Neck: Normal inspection. Neck supple. CVS: Normal heart rate and rhythm. Pulses normal. Respiratory: No respiratory distress. Equal air entry bilateral, prolonged expiration with wheezing Abdomen: Soft and nontender. Bowel sounds are present, no mass palpable, no CVA tenderness Skin: Skin warm and dry. Normal skin color. Normal skin turgor. Extremities: No lower extremity edema. No calf tenderness Neuro: Oriented X 3. MDM - SOB/Dyspnea MDM Narrative Medical decision making narrative: Patient with asthma with bronchitis feeling better after prednisone and nebulizing treatment discharge patient home Lab Data Labs: Lab Results 02/10/21 Range/Units 17:38 COVID-19 ([facility]) Negative (Negative) COVID-19 Clin Com See Note Discharge Plan Discharge Clinical Impression: Asthma with exacerbation Qualifiers: Asthma severity: moderate Asthma persistence: persistent Qualified Code(s): J45.41 - Moderate persistent asthma with (acute) exacerbation Patient Disposition: Home, Self-Care Instructions: Asthma (ED) Additional Instructions: Continue to take her nebulizing treatment every 4-6 hours Take prednisone as prescribed. Take Augmentin for bronchitis Prescriptions: New prednisone 20 mg tablet 40 mg PO DAILY Qty: 10 RF: 0 amoxicillin-pot clavulanate [Augmentin] 875-125 mg tablet 1 tab PO BID Qty: 20 RF: 0 No Action levalbuterol HCl [Xopenex] 0.63 mg/3 mL solution for nebulization 0.63 mg inhalation TID PRN (Reason: shortness of breath or wheezing) Qty: 72 RF: 0 levalbuterol tartrate [Xopenex HFA] 45 mcg/actuation HFA aerosol inhaler 2 puff inhalation Q4-6H PRN (Reason: shortness of breath or wheezing) Qty: 15 RF: 0 valacyclovir 500 mg tablet 500 mg PO BID RF: 0 albuterol sulfate 90 mcg/actuation HFA aerosol inhaler 2 puff inhalation Q6H PRNRF: 0 albuterol sulfate 0.63 mg/3 mL solution for nebulization 0.63 mg inhalation Q4-6H PRNRF: 0 multivitamin Capsule 1 cap PO DAILY RF: 0 Interventions: ED Discharge Assessment Last Done: 02/10/21 22:18 Discharge Date/Time: 02/10/21 22:19
[2021-02-10] MEDS: predniSONE 20 MG TABLET 40 MG PO (20:51)
[2021-02-10] MEDS: Amoxicillin/Potassium Clav 875 MG TABLET PO (20:51)
[2021-02-10] MEDS: Albuterol Sulfate (0.083%) 2.5 MG/3 ML VIAL.NEB INHALE (21:02)
[2021-02-10] MEDS: Albuterol/Iprat 2.5/0.5MG 3 ML AMPUL.NEB INHALE (21:02)
[2021-02-10 21:03] VITALS: PULSE 65; O2SAT 100
== END 2021-02-10 22:19 | disposition home or self-care (01) ==
PROVIDERS: Emergency Provider Internal Medicine; PCP Internal Medicine
DX: J45.41 Moderate persistent asthma with (acute) exacerbation (principal); R06.00 Dyspnea, unspecified; Z20.822 Contact with and (suspected) exposure to COVID-19; Z79.899 Other long term (current) drug therapy
CPT/HCPCS: 36415; 71045; 87635; 99284

== ENCOUNTER 2021-03-26 06:57 | Outpatient (REF) | payer OTHER, MEDICAID, SELFPAY ==
[2021-03-26 07:16] LABS: MANUAL DIFF FLAG NO
[2021-03-26 07:30] LABS: Basophils Absolute Auto 0.1 X10*3/uL (0.0-0.2); Basophils Percent Auto 0.6 % (0-2); Eosinophils Absolute Auto 0.1 X10*3/uL (0.0-0.4); Eosinophils Percent Auto 1.6 % (0-4); Hematocrit 41.6 % (37.0-47.0); Hemoglobin 13.5 g/dl (12.0-16.0); Imm Gran Abs Auto 0.03 X10*3/uL (0.00-0.03); Imm Gran Pct Auto 0.4 % (0.0-0.4); Lymphocytes Absolute Auto 2.2 X10*3/uL (1.2-4.9); Lymphocytes Percent Auto 26.9 % (20-40); Mean Corpuscular HGB Conc 32.5 g/dl (31.0-35.0); Mean Corpuscular Volume 92.4 fL (80.0-98.0); Mean Platelet Volume 10.2 fL (9.4-12.3); Monocytes Absolute Auto 0.8 X10*3/uL (0.1-1.2); Neutrophils Absolute Auto 5.11 x10*3/uL (2.0-8.3); Neutrophils Percent Auto 61.5 % (45-73); Platelet Count 272 X10*3/uL (160-400); Red Cell Distribution Width 12.3 % (11.0-16.0); White Blood Count 8.3 X10*3/uL (4.8-10.8)
[2021-03-26 07:53] LABS: Appearance Urine CLEAR; Color Urine YELLOW; Glucose Urine UA NEG (NEG); Leukocyte Esterase Urine NEG (NEG); Nitrite Urine NEG (NEG); PH 5.5 (5.0-8.0); Specific Gravity - Urine >= 1.030 (1.005-1.025); Urine Blood NEG (NEG); Urine Ketones NEG (NEG); Urine Protein NEG (NEG-TRACE)
[2021-03-26 07:58] LABS: Alanine Aminotransferase 20 U/L (0-31); Albumin Level 4.2 g/dL (3.5-5.0); Alkaline Phosphatase 49 U/L (39-117); Anion Gap 10 (12-20); Aspartate Amino Transferase 17 U/L (5-31); Bilirubin Total 0.7 mg/dL (0.0-1.0); Blood Urea Nitrogen 16 mg/dL (9-16); Carbon Dioxide 25 mmol/L (22-29); Chloride 107 mmol/L (96-108); Cholesterol 133 mg/dL; Estimated Glomerular Filt Rate > 60; Glucose Fasting 100 mg/dL (60-99); HDL Cholesterol 47 mg/dL; LDL Cholesterol Calculated 63 mg/dl; Potassium 4.1 mmol/L (3.3-5.1); Sodium 138 mmol/L (135-145); Total Protein 6.5 g/dL (6.5-8.0); Triglycerides 118 mg/dL
[2021-03-26 08:21] LABS: TSH reflex Free T4 1.59 uIU/mL (0.32-4.0); Vitamin D 25-OH Total 22.8 ng/mL (>30)
== END 2021-03-26 06:58 | disposition home or self-care (01) ==
LOC: HO.LAB 06:57
PROVIDERS: PCP Internal Medicine; Visit Provider Internal Medicine
DX: Z00.00 Encounter for general adult medical examination without abnormal findings (principal); E55.9 Vitamin D deficiency, unspecified
CPT/HCPCS: 36415; 80053; 80061; 81003; 82306; 84443; 85025

== ENCOUNTER 2021-04-01 10:25 | Outpatient (REF) | payer OTHER, MEDICAID, SELFPAY ==
[2021-04-01 11:17] LABS: MANUAL DIFF FLAG NO
[2021-04-01 11:59] LABS: Basophils Percent Auto 0.4 % (0-2); Eosinophils Absolute Auto 0.1 X10*3/uL (0.0-0.4); Eosinophils Percent Auto 1.5 % (0-4); Hematocrit 40.4 % (37.0-47.0); Hemoglobin 13.4 g/dl (12.0-16.0); Imm Gran Abs Auto 0.02 X10*3/uL (0.00-0.03); Imm Gran Pct Auto 0.3 % (0.0-0.4); Lymphocytes Absolute Auto 2.3 X10*3/uL (1.2-4.9); Lymphocytes Percent Auto 30.9 % (20-40); Mean Corpuscular HGB Conc 33.2 g/dl (31.0-35.0); Mean Corpuscular Hemoglobin 30.2 pg (27.0-33.0); Mean Platelet Volume 10.1 fL (9.4-12.3); Monocytes Absolute Auto 0.6 X10*3/uL (0.1-1.2); Monocytes Percent Auto 8.3 % (2-11); Neutrophils Absolute Auto 4.4 x10*3/uL (2.0-8.3); Neutrophils Percent Auto 58.6 % (45-73); Platelet Count 278 X10*3/uL (160-400); Red Blood Count 4.44 X10*6/uL (4.20-5.50); Red Cell Distribution Width 12.2 % (11.0-16.0); White Blood Count 7.4 X10*3/uL (4.8-10.8)
[2021-04-01 12:29] LABS: Alanine Aminotransferase 23 U/L (0-31); Albumin Level 4.7 g/dL (3.5-5.0); Alkaline Phosphatase 53 U/L (39-117); Anion Gap 12 (12-20); Aspartate Amino Transferase 17 U/L (5-31); Bilirubin Total 0.5 mg/dL (0.0-1.0); Blood Urea Nitrogen 13 mg/dL (9-16); C Reactive Protein 0.28 mg/dL (< or = 0.50); Calcium 9.6 mg/dL (8.4-10.2); Carbon Dioxide 24 mmol/L (22-29); Chloride 107 mmol/L (96-108); Estimated Glomerular Filt Rate > 60; Glucose Random 94 mg/dL (60-115); Potassium 4.1 mmol/L (3.3-5.1); Rheumatoid Factor < 15.0 IU/mL (<15.0); Sodium 139 mmol/L (135-145); Total Protein 7.4 g/dL (6.5-8.0)
[2021-04-01 12:46] LABS: Cholesterol 133 mg/dL; HDL Cholesterol 49 mg/dL; LDL Cholesterol Calculated 62 mg/dl; Triglycerides 114 mg/dL
[2021-04-01 12:51] LABS: Thyroid Stimulating Hormone 1.41 uIU/mL (0.32-4.0)
[2021-04-01 13:26] LABS: Erythrocyte Sedimentation Rate 6 MM/HR (0-20)
[2021-04-02 08:26] LABS: Lyme Abs Screen <0.90 index
[2021-04-02 13:56] LABS: Anti Nuclear Antibody Screen NEGATIVE (NEGATIVE)
[2021-04-02 20:31] LABS: Immunoglobulin G Subclass 1 549 mg/dL (382-929); Immunoglobulin G Subclass 2 235 mg/dL (241-700); Immunoglobulin G Subclass 3 14 mg/dL (22-178); Immunoglobulin G Total 961 mg/dL (600-1640)
[2021-04-02 22:26] LABS: Immunoglobulin E 38 kU/L (<OR=114)
[2021-04-03 18:18] LABS: IgA 87 mg/dL (47-310); IgG 1005 mg/dL (600-1640); IgM 194 mg/dL (50-300)
[2021-04-03 21:06] LABS: Cyclic Citrullinated Peptide <16 UNITS
[2021-04-04 17:17] LABS: Antibody to SS-A Antigen <1.0 NEG AI (<1.0 NEG); Antibody to SS-B Antigen <1.0 NEG AI (<1.0 NEG)
[2021-04-05 13:16] LABS: Vitamin D 25-OH, D2 <4 ng/mL; Vitamin D 25-OH, D3 23 ng/mL; Vitamin D 25-OH, Total 23 ng/mL (30-100)
== END 2021-04-01 10:26 | disposition home or self-care (01) ==
LOC: HO.LAB 10:25
PROVIDERS: Nurse Practitioner Family; Student in an Organized Health Care Education/Training Program; PCP Internal Medicine; Visit Provider Internal Medicine Pulmonary Disease
DX: Z00.00 Encounter for general adult medical examination without abnormal findings (principal); M25.50 Pain in unspecified joint; J45.909 Unspecified asthma, uncomplicated; Z91.09 Other allergy status, other than to drugs and biological substances
CPT/HCPCS: 36415; 80053; 80061; 82306; 82784; 82785; 84443; 85025; 85652; 86038; 86039; 86140; 86200; 86235; 86431; 86617; 86618

== ENCOUNTER 2021-04-16 09:12 | Outpatient (REF) | payer OTHER, MEDICAID, SELFPAY ==
--- NOTE | 2021-04-16 17:22 | PFT_ITS ---
INDICATION: Asthma. SPIROMETRY: The FEV1 to FVC 92% with an FEV1 of 2.91 L, which is 99% predicted and an FVC of 3.18 L which is 92% predicted. No significant response to bronchodilators noted. Maximum voluntary ventilation 136% predicted. LUNG VOLUMES: Total lung capacity 88% predicted with a residual volume of 74% predicted. Expiratory reserve volume of 34% predicted. DIFFUSION CAPACITY: 100%. Flow volume loop appears to be nearly perfect. COMPARISONS: None. INTERPRETATION: No obstructive nor restrictive ventilatory defects identified. No significant response to bronchodilators noted. Normal maximum voluntary ventilation. Lung volumes are normal except for decrease in the expiratory reserve volume secondary to an elevated BMI, and diffusion capacity is within normal limits. If asthma is in the differential, a methacholine challenge may be helpful in assessing for hyperreactive airways, otherwise clinical correlation warranted. MD CAILIN Escobar/MODCassidy / [id number]
== END 2021-04-16 09:13 | disposition home or self-care (01) ==
LOC: HO.RESP 09:12
PROVIDERS: PCP Internal Medicine; Visit Provider Internal Medicine Pulmonary Disease
DX: J45.909 Unspecified asthma, uncomplicated (principal)
CPT/HCPCS: 94060; 94727; 94729

== ENCOUNTER → 2021-04-24 09:04 | Outpatient (BNVA) | payer OTHER, MEDICAID, SELFPAY | PROVIDERS: PCP Internal Medicine; Visit Provider Internal Medicine Pulmonary Disease | DX: J45.909 Unspecified asthma, uncomplicated (principal); Z91.09 Other allergy status, other than to drugs and biological substances ==

== ENCOUNTER 2021-05-20 13:36 | Outpatient (REF) | payer OTHER, MEDICAID, SELFPAY ==
[2021-05-20 13:52] LABS: MANUAL DIFF FLAG NO
[2021-05-20 14:09] LABS: Basophils Absolute Auto 0.1 X10*3/uL (0.0-0.2); Basophils Percent Auto 0.8 % (0-2); Eosinophils Absolute Auto 0.1 X10*3/uL (0.0-0.4); Eosinophils Percent Auto 0.8 % (0-4); Hematocrit 42.1 % (37.0-47.0); Hemoglobin 13.8 g/dl (12.0-16.0); Imm Gran Abs Auto 0.01 X10*3/uL (0.00-0.03); Imm Gran Pct Auto 0.1 % (0.0-0.4); Lymphocytes Absolute Auto 2.2 X10*3/uL (1.2-4.9); Lymphocytes Percent Auto 29.8 % (20-40); Mean Corpuscular HGB Conc 32.8 g/dl (31.0-35.0); Mean Corpuscular Hemoglobin 30.4 pg (27.0-33.0); Mean Corpuscular Volume 92.7 fL (80.0-98.0); Mean Platelet Volume 9.9 fL (9.4-12.3); Monocytes Absolute Auto 0.5 X10*3/uL (0.1-1.2); Monocytes Percent Auto 7.4 % (2-11); Neutrophils Absolute Auto 4.5 x10*3/uL (2.0-8.3); Neutrophils Percent Auto 61.1 % (45-73); Platelet Count 315 X10*3/uL (160-400); Red Blood Count 4.54 X10*6/uL (4.20-5.50); White Blood Count 7.3 X10*3/uL (4.8-10.8)
== END 2021-05-20 13:37 | disposition home or self-care (01) ==
LOC: HO.LAB 13:36
PROVIDERS: PCP Internal Medicine; Visit Provider Internal Medicine Pulmonary Disease
DX: Z91.09 Other allergy status, other than to drugs and biological substances (principal)
CPT/HCPCS: 36415; 82785; 85025; 86003

== ENCOUNTER 2021-06-10 08:19 | Outpatient (REF) | payer OTHER, MEDICAID, SELFPAY | END 2021-06-10 08:20 | disposition home or self-care (01) | LOC: HO.MDS 08:19 | PROVIDERS: Visit Provider Internal Medicine Pulmonary Disease | DX: J45.40 Moderate persistent asthma, uncomplicated (principal) | CPT/HCPCS: 96372; J2357 ==

== ENCOUNTER 2021-06-29 09:49 | Outpatient (REF) | payer OTHER, MEDICAID, SELFPAY ==
--- NOTE | ~2021-06-29 | XR_ITS ---
EXAMINATION: 1. RADIOGRAPHS CERVICAL SPINE 2. RADIOGRAPHS LUMBAR SPINE CLINICAL INFORMATION: Cervicalgia. Low back pain. COMPARISON: Cervical spine x-ray 02/15/2019 and lumbar spine x-rays 03/08/2019 TECHNIQUE: 3 views of the cervical spine and 3 views of the lumbar spine were obtained. FINDINGS: Cervical spine: The cervical spine is visualized in its entirety. Normal alignment of the cervical spine. Normal C1/C2 articulation. Cervical vertebral body heights and disc spaces are well-maintained. There is no prevertebral soft tissue swelling. Visualized lung apices are well aerated. Lumbar spine: 5 nonrib-bearing lumbar vertebral bodies are visualized. There is straightening of the normal lumbar lordosis which is suspected to be positional in nature. Lumbar vertebral body heights and disc spaces are well-maintained diffusely. Sacroiliac joints are symmetric. There appears to be a moderate stool burden throughout visualized loops of colon. IUD partially visualized. XR/XR lumbar spine 2-3V IMPRESSION: -Unremarkable radiographs of the cervical spine. -Unremarkable radiographs of the lumbar spine.
--- NOTE | ~2021-06-29 | XR_ITS ---
EXAMINATION: 1. RADIOGRAPHS CERVICAL SPINE 2. RADIOGRAPHS LUMBAR SPINE CLINICAL INFORMATION: Cervicalgia. Low back pain. COMPARISON: Cervical spine x-ray 02/15/2019 and lumbar spine x-rays 03/08/2019 TECHNIQUE: 3 views of the cervical spine and 3 views of the lumbar spine were obtained. FINDINGS: Cervical spine: The cervical spine is visualized in its entirety. Normal alignment of the cervical spine. Normal C1/C2 articulation. Cervical vertebral body heights and disc spaces are well-maintained. There is no prevertebral soft tissue swelling. Visualized lung apices are well aerated. Lumbar spine: 5 nonrib-bearing lumbar vertebral bodies are visualized. There is straightening of the normal lumbar lordosis which is suspected to be positional in nature. Lumbar vertebral body heights and disc spaces are well-maintained diffusely. Sacroiliac joints are symmetric. There appears to be a moderate stool burden throughout visualized loops of colon. IUD partially visualized. XR/XR cervical spine 3V IMPRESSION: -Unremarkable radiographs of the cervical spine. -Unremarkable radiographs of the lumbar spine.
== END 2021-06-29 09:50 | disposition home or self-care (01) ==
LOC: HO.XRAY 09:49
PROVIDERS: PCP Internal Medicine; Visit Provider Internal Medicine
DX: M54.2 Cervicalgia (principal); M54.50 Low back pain, unspecified
CPT/HCPCS: 72040; 72100

== ENCOUNTER 2021-07-08 08:04 | Outpatient (REF) | payer OTHER, MEDICAID, SELFPAY | END 2021-07-08 08:05 | disposition home or self-care (01) | LOC: HO.MDS 08:04 | PROVIDERS: Visit Provider Internal Medicine Pulmonary Disease | DX: J45.40 Moderate persistent asthma, uncomplicated (principal) | CPT/HCPCS: 96372; J2357 ==

== ENCOUNTER → 2021-07-09 12:50 | Outpatient (BNVA) | payer OTHER, MEDICAID, SELFPAY | PROVIDERS: PCP Internal Medicine; Visit Provider Internal Medicine Pulmonary Disease | DX: J45.909 Unspecified asthma, uncomplicated (principal); Z91.09 Other allergy status, other than to drugs and biological substances ==

== ENCOUNTER 2021-08-05 08:08 | Outpatient (REF) | payer OTHER, MEDICAID, SELFPAY | END 2021-08-05 08:09 | disposition home or self-care (01) | LOC: HO.MDS 08:08 | PROVIDERS: Visit Provider Internal Medicine Pulmonary Disease | DX: J45.40 Moderate persistent asthma, uncomplicated (principal) | CPT/HCPCS: 96372; J2357 ==

== ENCOUNTER 2021-09-02 10:29 | Outpatient (REF) | payer OTHER, MEDICAID, SELFPAY | END 2021-09-02 10:30 | disposition home or self-care (01) | LOC: HO.MDS 10:29 | PROVIDERS: Visit Provider Internal Medicine Pulmonary Disease | DX: J45.40 Moderate persistent asthma, uncomplicated (principal) | CPT/HCPCS: 96372; J2357 ==

== ENCOUNTER → 2021-09-13 08:59 | Outpatient (BNVA) | payer OTHER, MEDICAID, SELFPAY | PROVIDERS: PCP Internal Medicine; Visit Provider Internal Medicine Pulmonary Disease | DX: J45.909 Unspecified asthma, uncomplicated (principal); Z91.09 Other allergy status, other than to drugs and biological substances ==

== ENCOUNTER 2021-09-30 08:21 | Outpatient (REF) | payer OTHER, MEDICAID, SELFPAY | END 2021-09-30 08:22 | disposition home or self-care (01) | LOC: HO.MDS 08:21 | PROVIDERS: Visit Provider Internal Medicine Pulmonary Disease | DX: J45.40 Moderate persistent asthma, uncomplicated (principal) | CPT/HCPCS: 96372; J2357 ==

== ENCOUNTER 2021-10-03 08:01 | Outpatient (REF) | payer OTHER, MEDICAID, SELFPAY ==
--- NOTE | 2021-10-03 08:04 | EMG_ITS ---
Bilateral median and ulnar motor and sensory studies were performed. Bilateral radial sensory studies were performed and paraspinal muscles were tested with a needle. IMPRESSION: 1. Mild right median neuropathy across carpal tunnel, the left was within normal range. 2. Mild right ulnar neuropathy across cubital tunnel. MD SARAH Carballo/BARNEY / [id number]
== END 2021-10-03 08:02 | disposition home or self-care (01) ==
LOC: HO.NEURO 08:01
PROVIDERS: PCP Internal Medicine; Visit Provider Internal Medicine
DX: R20.2 Paresthesia of skin (principal); R20.0 Anesthesia of skin
CPT/HCPCS: 95886; 95911

== ENCOUNTER 2021-10-08 12:24 | Outpatient (REF) | payer OTHER, MEDICAID, SELFPAY ==
[2021-10-08 13:09] LABS: COVID-19 Test Positive (Negative); IDNOW Serial# 9DB6401D
== END 2021-10-08 12:25 | disposition home or self-care (01) ==
LOC: HO.LAB 12:24
PROVIDERS: Visit Provider Internal Medicine
DX: Z20.822 Contact with and (suspected) exposure to COVID-19 (principal)
CPT/HCPCS: 87635; C9803

== ENCOUNTER → 2021-10-17 11:34 | Outpatient (BNVA) | payer OTHER, MEDICAID, SELFPAY | PROVIDERS: PCP Internal Medicine; Visit Provider Dietitian, Registered | DX: E66.9 Obesity, unspecified (principal); Z68.31 Body mass index [BMI] 31.0-31.9, adult | CPT/HCPCS: 97802 ==

== ENCOUNTER 2021-10-28 08:19 | Outpatient (REF) | payer OTHER, MEDICAID, SELFPAY | END 2021-10-28 08:20 | disposition home or self-care (01) | LOC: HO.MDS 08:19 | PROVIDERS: Visit Provider Internal Medicine Pulmonary Disease | DX: J45.40 Moderate persistent asthma, uncomplicated (principal) | CPT/HCPCS: 96372; J2357 ==

== ENCOUNTER → 2021-11-21 09:32 | Outpatient (BNVA) | payer OTHER, MEDICAID, SELFPAY | PROVIDERS: PCP Internal Medicine; Visit Provider Dietitian, Registered | DX: E66.9 Obesity, unspecified (principal); Z68.32 Body mass index [BMI] 32.0-32.9, adult | CPT/HCPCS: 97803 ==

== ENCOUNTER 2022-01-09 09:29 | Outpatient (REF) | payer OTHER, MEDICAID, SELFPAY | END 2022-01-09 09:30 | disposition home or self-care (01) | LOC: HO.MDS 09:29 | PROVIDERS: Visit Provider Internal Medicine Pulmonary Disease | DX: J45.40 Moderate persistent asthma, uncomplicated (principal) | CPT/HCPCS: 96372; J2357 ==

== ENCOUNTER 2022-01-30 07:59 | Outpatient (REF) | payer OTHER, MEDICAID, SELFPAY ==
[2022-01-30 08:15] LABS: MANUAL DIFF FLAG NO
[2022-01-30 08:54] LABS: Basophils Absolute Auto 0.1 X10*3/uL (0.0-0.2); Basophils Percent Auto 0.8 % (0-2); Eosinophils Absolute Auto 0.1 X10*3/uL (0.0-0.4); Eosinophils Percent Auto 1.2 % (0-4); Hematocrit 43.2 % (37.0-47.0); Imm Gran Abs Auto 0.01 X10*3/uL (0.00-0.03); Imm Gran Pct Auto 0.2 % (0.0-0.4); Lymphocytes Absolute Auto 2.4 X10*3/uL (1.2-4.9); Lymphocytes Percent Auto 37.2 % (20-40); Mean Corpuscular HGB Conc 32.4 g/dl (31.0-35.0); Mean Corpuscular Hemoglobin 30.4 pg (27.0-33.0); Mean Corpuscular Volume 93.7 fL (80.0-98.0); Mean Platelet Volume 10.4 fL (9.4-12.3); Monocytes Absolute Auto 0.6 X10*3/uL (0.1-1.2); Monocytes Percent Auto 9.6 % (2-11); Neutrophils Absolute Auto 3.3 x10*3/uL (2.0-8.3); Platelet Count 274 X10*3/uL (160-400); Red Blood Count 4.61 X10*6/uL (4.20-5.50); Red Cell Distribution Width 12.4 % (11.0-16.0); White Blood Count 6.5 X10*3/uL (4.8-10.8)
[2022-01-30 09:49] LABS: Alanine Aminotransferase 36 U/L (0-31); Albumin Level 4.4 g/dL (3.5-5.0); Alkaline Phosphatase 45 U/L (39-117); Anion Gap 15 (12-20); Aspartate Amino Transferase 47 U/L (5-31); Bilirubin Total 0.6 mg/dL (0.0-1.0); Blood Urea Nitrogen 17 mg/dL (9-16); Calcium 9.2 mg/dL (8.4-10.2); Carbon Dioxide 24 mmol/L (22-29); Chloride 108 mmol/L (96-108); Estimated Glomerular Filt Rate > 60; Glucose Random 90 mg/dL (60-115); Potassium 4.8 mmol/L (3.3-5.1); Sodium 142 mmol/L (135-145)
== END 2022-01-30 08:00 | disposition home or self-care (01) ==
LOC: HO.LAB 07:59
PROVIDERS: PCP Internal Medicine; Visit Provider Internal Medicine
DX: I10 Essential (primary) hypertension (principal); R53.83 Other fatigue
CPT/HCPCS: 36415; 80053; 85025

== ENCOUNTER 2022-02-06 07:50 | Outpatient (REF) | payer OTHER, MEDICAID, SELFPAY | END 2022-02-06 07:51 | disposition home or self-care (01) | LOC: HO.MDS 07:50 | PROVIDERS: Visit Provider Internal Medicine Pulmonary Disease | DX: J45.40 Moderate persistent asthma, uncomplicated (principal) | CPT/HCPCS: 96372; J2357 ==

== ENCOUNTER 2022-03-06 08:01 | Outpatient (REF) | payer OTHER, MEDICAID, SELFPAY | END 2022-03-06 08:02 | disposition home or self-care (01) | LOC: HO.MDS 08:01 | PROVIDERS: Visit Provider Internal Medicine Pulmonary Disease | DX: J45.40 Moderate persistent asthma, uncomplicated (principal) | CPT/HCPCS: 96372; J2357 ==

== ENCOUNTER 2022-04-01 07:49 | Outpatient (REF) | payer OTHER, MEDICAID, SELFPAY ==
[2022-04-01 10:33] LABS: Alanine Aminotransferase 16 U/L (0-31); Albumin Level 4.4 g/dL (3.5-5.0); Alkaline Phosphatase 47 U/L (39-117); Anion Gap 14 (12-20); Aspartate Amino Transferase 17 U/L (5-31); Bilirubin Total 0.3 mg/dL (0.0-1.0); Blood Urea Nitrogen 20 mg/dL (9-16); Carbon Dioxide 21 mmol/L (22-29); Chloride 109 mmol/L (96-108); Cholesterol 120 mg/dL; Estimated Glomerular Filt Rate > 60; Glucose Fasting 91 mg/dL (60-99); HDL Cholesterol 46 mg/dL; LDL Cholesterol Calculated 65 mg/dl; Magnesium 1.9 mg/dL (1.6-2.6); Potassium 4.2 mmol/L (3.3-5.1); Sodium 140 mmol/L (135-145); Total Protein 6.9 g/dL (6.5-8.0); Triglycerides 47 mg/dL
[2022-04-01 10:45] LABS: TSH reflex Free T4 1.04 uIU/mL (0.32-4.0); Vitamin D 25-OH Total 34.7 ng/mL (>30)
[2022-04-01 10:52] LABS: Folate 16.3 ng/mL (> or = 4.0)
[2022-04-01 11:16] LABS: Vitamin B12 576 pg/mL (200-900)
== END 2022-04-01 07:50 | disposition home or self-care (01) ==
LOC: HO.LAB 07:49
PROVIDERS: PCP Internal Medicine; Visit Provider Internal Medicine
DX: Z00.00 Encounter for general adult medical examination without abnormal findings (principal); E55.9 Vitamin D deficiency, unspecified; E83.42 Hypomagnesemia; R20.2 Paresthesia of skin; E53.8 Deficiency of other specified B group vitamins; E78.00 Pure hypercholesterolemia, unspecified
CPT/HCPCS: 36415; 80053; 80061; 82306; 82607; 82746; 83735; 84443

== ENCOUNTER 2022-04-03 08:03 | Outpatient (REF) | payer OTHER, MEDICAID, SELFPAY | END 2022-04-03 08:04 | disposition home or self-care (01) | LOC: HO.MDS 08:03 | PROVIDERS: Visit Provider Internal Medicine Pulmonary Disease | DX: J45.40 Moderate persistent asthma, uncomplicated (principal) | CPT/HCPCS: 96372; J2357 ==

== ENCOUNTER 2022-04-15 02:38 | Emergency (ER) | payer OTHER, MEDICAID, SELFPAY ==
--- NOTE | ~2022-04-15 | XR_ITS ---
EXAMINATION: XR CHEST CLINICAL INFORMATION: Cough and shortness of breath COMPARISON: 02/11/2020 [place] TECHNIQUE: Frontal view of the chest was obtained. FINDINGS: The lungs are well expanded. There is no focal consolidation, edema, or effusion. No pneumothorax. The cardiomediastinal silhouette is within normal limits. No acute osseous abnormality. XR/XR chest 1V IMPRESSION: Clear lungs.
[2022-04-15 02:46] VITALS: BP 126/65; PULSE 94; RESP 22; TEMP 36.6; O2SAT 99; BMI 32.1
[2022-04-15 03:08] VITALS: O2SAT 97
--- NOTE | 2022-04-15 03:09 | ED_ITS ---
HPI - URI/Sore Throat General Chief Complaint: Upper Respiratory Symptoms Stated Complaint: Sob, tightness of the chest Time Seen by Provider: 04/15/22 03:03 Source: patient Mode of arrival: ambulatory Limitations: no limitations History of Present Illness HPI Narrative: Patient comes to the emergency room complaining of 4 days of asthma exacerbation. Patient takes saliva risk, montelukast, albuterol. Patient c omplaining of productive cough with green sputum, no fever chills. Patient states that she has young kids at home and they are sick with upper respiratory infections. Related Data Home Medications Medication Instructions Recorded Confirmed multivitamin 1 cap PO DAILY 03/09/20 03/28/22 albuterol sulfate 0.63 mg/3 mL 0.63 mg inhalation Q4-6H PRN 05/02/20 03/28/22 solution for nebulization albuterol sulfate 90 mcg/actuation 2 puff inhalation Q6H PRN 05/02/20 03/28/22 aerosol inhaler fluticasone propionate 50 spray intranasal 03/25/21 03/28/22 mcg/actuation nasal spray,suspension cetirizine 10 mg tablet 10 mg PO DAILY PRN 03/29/22 03/29/22 montelukast 10 mg tablet 10 mg PO QPM 03/29/22 03/29/22 sumatriptan succinate 50 mg tablet See Rx Instructions PO .COMPLEX 03/29/22 03/29/22 topiramate 25 mg tablet 25 mg PO DAILY 03/29/22 03/29/22 Previous Rx's Medication Instructions Recorded omalizumab 150 mg subcutaneous 150 mg subcut Q4W 30 days #1 ea 05/29/21 solution (Xolair) prednisone 50 mg tablet 50 mg PO DAILY #4 tabs 04/15/22 Allergies Allergy/AdvReac Type Severity Reaction Status Date / Time No Known Allergies Allergy Verified 03/28/22 13:36 [No Known Allergies*] Review of Systems Review of Systems: Constitutional : No Weight loss, No Fever, No Chills, No Night Sweats, No Fatigue, No Malaise ENT/Mouth : No Hearing loss, No Ear Pain, No Nasal Congestion, No Sinus Pain, mild Hoarseness, complaining of sore throat, No Rhinorrhea, No Swallowing Difficulty Eyes: No Eye Pain, No Swelling, No Redness, No Foreign Body, No Discharge, No Vision Changes Cardiovascular : No Chest Pain, No SOB, No Dyspnea on Exertion, No Orthopnea, No Edema, No Palpitations Respiratory : Complaining of productive cough with wheezing Gastrointestinal : No Nausea, No Vomiting, No Diarrhea, No Constipation, No abdominal Pain, No Hematochezia, No Melena Genitourinary : no irregular bleeding, No Dysuria, No Urinary Frequency, No Hematuria, No Urinary Incontinence, No Urgency, No Flank Pain, No Urinary Flow Changes, No Hesitancy Musculoskeletal : No joint pain, No Myalgias, No Joint Swelling Skin : No Skin Lesions, No rash Neuro : No Weakness, No Numbness, No Paresthesias, No Loss of Consciousness, No Dizziness, No Headache Psych : No Anxiety/Panic, No Depression, No SI/HI/AH/VH, No Social Issues, Heme/Lymph: No Bruising, No Bleeding,No Lymphadenopathy Endocrine : No Polyuria, No Polydipsia, No Temperature Intolerance PMFSH Past Medical History Medical History Allergic rhinitis Asthma Herpes zoster conjunctivitis of left eye Herpes zoster conjunctivitis, left eye Migraine Overweight (BMI 25.0-29.9) Parasomnia Restless leg syndrome Surgical History History of bladder surgery History of History of wisdom tooth extraction Family History Family History Father Hypertension Prostate cancer Chronic mental illness Substance abuse Mother Low blood pressure Sister Heart disease Paternal Grandmother Breast cancer Paternal Aunt Breast cancer Family/Other Depression Social History Social History Housing: Apartment Alcohol intake: never Patient Tobacco Use Status: Never used Tobacco Smoked in Last 30 Days: No e-Cigarette/Vaping Use: Never Used Second Hand Smoke Exposure: No Use of substances other than those prescribed or required for medical reasons: No Advance Directives: No Patient : No service: No Current occupational status: employed Cognitive needs: No Hearing needs: No Vision needs: Yes Physical Exam Vital Signs: Vital Signs: Last Vital Signs Temp 98.2 F 04/15/22 03:39 Pulse 99 04/15/22 03:39 Resp 18 04/15/22 03:39 BP 124/67 04/15/22 03:39 Pulse Ox 100 04/15/22 03:39 O2 Del Method 04/15/22 03:39 BMI result Body Mass Index 32.1 Const: Other: Appearance: Alert. Oriented X3. No acute distress. Eyes: Pupils equal, round and reactive to light. ENT: Pharynx normal. Neck: Normal inspection. Neck supple. No lymph nodes noted. No crepitus CVS: Normal heart rate and rhythm. Pulses normal. Normal S1 and S2 Respiratory: No respiratory distress. Bilateral rales, No Wheezing. No rales Abdomen: Soft and nontender. No rigidity. No distention. Skin: Skin warm and dry. Normal skin color. Normal skin turgor. Extremities: No lower extremity edema. No Lacerations. No Rash Neuro: Oriented X 3. No motor deficit. No sensory deficit. Moving all extremities. No slurred speech. CN 2 through 12 grossly intact Psych: calm, cooperative, normal affect Course Course Course Narrative: Patient likely has viral bronchitis. Patient's COVID test and chest x-ray pending. Patient was given nebulization treatment and p.o. prednisone. Oxygen saturation 99% on room air, speaking in full sentences, no respiratory distress On physical exam, patient had no wheezing. Patient tested negative for COVID- 19, given p.o. prednisone. Chest x-ray negative for pneumonia. Patient will likely benefit from a short course of albuterol. Patient states she has all of her medications at for asthma Patient speaking full sentences, oxygen saturation 99% on room air, no wheezing before discharge Medications Administered Discontinued Medications Generic Name Dose Route Start Last Admin Trade Name Freq PRN Reason Stop Dose Admin Albuterol Sulfate 2.5 mg/ 5 mg 04/15/22 03:09 04/15/22 03:29 Albuterol Sulfate 2.5 mg INHALE 04/15/22 03:10 5 mg ONCE ONE Administration Prednisone 60 mg 04/15/22 03:09 04/15/22 03:15 Prednisone 20 Mg Tablet PO 04/15/22 03:10 60 mg ONCE ONE Administration MDM - URI/Sore Throat Lab Data Labs: Lab Results 04/15/22 Range/Units 02:54 Influenza Type A (PCR) NEGATIVE (Negative) Influenza Type B (PCR) NEGATIVE (Negative) RSV RNA Qual (PCR) NEGATIVE (Negative) SARS-CoV-2 RNA (RT-PCR) NEGATIVE (Negative) Imaging Data Chest x-ray: Radiologist's impression: FINDINGS: The lungs are well expanded. There is no focal consolidation, edema, or effusion. No pneumothorax. The cardiomediastinal silhouette is within normal limits. No acute osseous abnormality. XR/XR chest 1V IMPRESSION: Clear lungs. ? Discharge Plan Discharge Clinical Impression: Acute viral bronchitis Patient Disposition: Home, Self-Care Instructions: Acute Bronchitis (ED) Additional Instructions: Please follow-up with your primary care physician tomorrow. If you have any worsening or new symptoms, please return to the emergency room or call 911 Prescriptions: New prednisone 50 mg tablet 50 mg PO DAILY Qty: 4 0RF No Action Xolair 150 mg recon soln 150 mg subcut Q4W 30 Days Qty: 1 12RF fluticasone propionate 50 mcg/actuation spray,suspension intranasal cetirizine 10 mg tablet 10 mg PO DAILY PRN montelukast 10 mg tablet 10 mg PO QPM topiramate 25 mg tablet 25 mg PO DAILY sumatriptan succinate 50 mg tablet See Rx Instructions PO .COMPLEX Rx Instructions: take 1 tab at onset of headache; if no relief may repeat 1 tab after at least 2 hrs; max = 4 tabs/24 hr PO albuterol sulfate 90 mcg/actuation HFA aerosol inhaler 2 puff inhalation Q6H PRN albuterol sulfate 0.63 mg/3 mL solution for nebulization 0.63 mg inhalation Q4-6H PRN multivitamin Capsule 1 cap PO DAILY
[2022-04-15] MEDS: predniSONE 20 MG TABLET 60 MG PO (03:15)
[2022-04-15] MEDS: Albuterol Sulfate 2.5 MG, Albuterol Sulfate (0.083%) 2.5 MG 5 MG INHALE (03:29)
[2022-04-15 03:31] VITALS: PULSE 92; RESP 18; O2SAT 98
[2022-04-15 03:39] VITALS: BP 124/67; PULSE 99; RESP 18; TEMP 36.8; O2SAT 100
[2022-04-15 03:39] LABS: Influenza A PCR NEGATIVE (Negative); Influenza B PCR NEGATIVE (Negative); Resp Syncy Virus RNA Qual PCR NEGATIVE (Negative); SARS COV2 PCR INHOUSE NEGATIVE (Negative)
[2022-04-15] MEDS: Lidocaine HCl Viscous 2 % 15 ML SOLUTION MUCOUS MEM (04:03)
[2022-04-15 04:09] VITALS: BP 129/71; PULSE 109; RESP 20; TEMP 36.4; O2SAT 100
== END 2022-04-15 04:09 | disposition home or self-care (01) ==
PROVIDERS: Emergency Provider Emergency Medicine; PCP Internal Medicine
DX: J20.8 Acute bronchitis due to other specified organisms (principal); R06.02 Shortness of breath; R05.9 Cough, unspecified; Z20.822 Contact with and (suspected) exposure to COVID-19
CPT/HCPCS: 0241U; 71045; 94640; 99284; 99285

== ENCOUNTER 2022-05-01 08:30 | Outpatient (REF) | payer OTHER, MEDICAID, SELFPAY | END 2022-05-01 08:31 | disposition home or self-care (01) | LOC: HO.MDS 08:30 | PROVIDERS: PCP Internal Medicine; Visit Provider Internal Medicine Pulmonary Disease | DX: J45.40 Moderate persistent asthma, uncomplicated (principal) | CPT/HCPCS: 96372; J2357 ==

== ENCOUNTER 2022-05-29 07:57 | Outpatient (REF) | payer OTHER, MEDICAID, SELFPAY | END 2022-05-29 07:58 | disposition home or self-care (01) | LOC: HO.MDS 07:57 | PROVIDERS: Visit Provider Internal Medicine Pulmonary Disease | DX: J45.50 Severe persistent asthma, uncomplicated (principal) | CPT/HCPCS: 96372; J2357 ==

== ENCOUNTER 2022-06-26 08:19 | Outpatient (REF) | payer OTHER, MEDICAID, SELFPAY | END 2022-06-26 08:20 | disposition home or self-care (01) | LOC: HO.MDS 08:19 | PROVIDERS: Visit Provider Internal Medicine Pulmonary Disease | DX: J45.50 Severe persistent asthma, uncomplicated (principal) | CPT/HCPCS: 96372; J2357 ==

== ENCOUNTER 2022-07-24 07:50 | Outpatient (REF) | payer OTHER, MEDICAID, SELFPAY | END 2022-07-24 07:51 | disposition home or self-care (01) | LOC: HO.MDS 07:50 | PROVIDERS: Visit Provider Internal Medicine Pulmonary Disease | DX: J45.50 Severe persistent asthma, uncomplicated (principal) | CPT/HCPCS: 96372; J2357 ==

== ENCOUNTER → 2022-07-29 09:25 | Outpatient (BNVA) | payer OTHER, MEDICAID, SELFPAY | PROVIDERS: PCP Internal Medicine; Visit Provider Internal Medicine Pulmonary Disease | DX: J45.909 Unspecified asthma, uncomplicated (principal); Z91.09 Other allergy status, other than to drugs and biological substances ==

== ENCOUNTER 2022-08-05 17:00 | Emergency (ER) | payer OTHER, MEDICAID, SELFPAY ==
--- NOTE | ~2022-08-05 | XR_ITS ---
EXAMINATION: XR CHEST CLINICAL INFORMATION: Shortness of breath. COMPARISON: Chest x-ray 04/15/2022 TECHNIQUE: Frontal view of the chest was obtained. 1804 hours FINDINGS: No significant abnormality is noted involving the heart, lungs, mediastinum, bony thorax or soft tissues. XR/XR chest 1V IMPRESSION: Unremarkable examination.
[2022-08-05 17:24] VITALS: BP 126/68; PULSE 99; RESP 20; TEMP 37; O2SAT 99; BMI 29.8
--- NOTE | 2022-08-05 17:25 | ED.SOB ---
HPI - SOB/Dyspnea General Chief Complaint: Asthma Stated Complaint: sob Time Seen by Provider: 08/05/22 19:38 Source: patient Mode of arrival: ambulatory History of Present Illness HPI Narrative: 32-year-old female w/PMHx asthma, migraines, allergic rhinitis presenting to the ED c/o shortness of breath x 1 week. Admits symptoms have been worsening over the past few days with exertional dyspnea/lightheadedness and chest tightness. Admits has been using rescue inhaler and neb machine at home without relief. Had telehealth visit yesterday and was started on prednisone 40 mg. Denies fever, chills, pedal edema, calf pain, recent travel MD elicited complaint: shortness of breath, cough and asthma attack Related Data Home Medications Medication Instructions Recorded Confirmed multivitamin 1 cap PO DAILY 03/09/20 03/28/22 fluticasone propionate 50 spray intranasal 03/25/21 03/28/22 mcg/actuation nasal spray,suspension sumatriptan succinate 50 mg tablet See Rx Instructions PO .COMPLEX 03/29/22 03/29/22 topiramate 25 mg tablet 25 mg PO DAILY 03/29/22 03/29/22 Previous Rx's Medication Instructions Recorded omalizumab 150 mg subcutaneous 150 mg subcut Q4W 30 days #1 ea 05/29/21 solution (Xolair) albuterol sulfate 0.63 mg/3 mL 0.63 mg (3 mL) inhalation Q4-6H 04/18/22 solution for nebulization PRN shortness of breath or wheezing #180 mL albuterol sulfate 90 mcg/actuation 2 puff inhalation Q6H PRN 04/18/22 aerosol inhaler shortness of breath or wheezing 30 days #8.5 grams cetirizine 10 mg tablet 10 mg PO DAILY PRN allergy 07/29/22 symptoms #30 tabs fluticasone 250 mcg-salmeterol 50 1 inh inhalation BID 30 days #60 ea 07/29/22 mcg/dose blistr powdr for inhalation (Advair Diskus) montelukast 10 mg tablet 10 mg PO DAILY 30 days #30 tabs 07/29/22 (Singulair) prednisone 10 mg tablet 40 mg PO DAILY 7 days #28 tabs 08/04/22 albuterol sulfate 2.5 mg/0.5 mL 5 mg inhalation Q4H PRN shortness 08/05/22 solution for nebulization of breath or wheezing #30 ea albuterol sulfate 90 mcg/actuation 2 puff inhalation Q4-6H PRN 08/05/22 aerosol inhaler shortness of breath or wheezing #6.7 grams Allergies Allergy/AdvReac Type Severity Reaction Status Date / Time No Known Allergies Allergy Verified 07/29/22 09:29 [No Known Allergies*] Review of Systems Review of Systems: Constitutional: No Fever, No Chills ENT/Mouth: No Ear Pain, No Nasal Congestion, No Sinus Pain, No Hoarseness, No sore throat, No Rhinorrhea, No Swallowing Difficulty Cardiovascular: + Chest tightness, + SOB Respiratory: + Cough, No Sputum, + Wheezing Gastrointestinal: No Nausea, No Vomiting, No Diarrhea, No Constipation, No Abdominal pain Genitourinary: No Dysuria, No Urinary Frequency, No Hematuria Musculoskeletal: No joint pain, No Myalgias, No Joint Swelling Skin: No Skin Lesions, No rash Neuro: No Weakness, No Numbness, No Paresthesias Yes all other systems are reviewed and are negative Constitutional: Constitutional: Reports as per [facility] Past Medical History Attestation statement: The following information was validated with the patient. Medical History Allergic rhinitis Asthma Herpes zoster conjunctivitis of left eye Herpes zoster conjunctivitis, left eye Migraine Overweight (BMI 25.0-29.9) Parasomnia Restless leg syndrome Surgical History History of bladder surgery History of History of wisdom tooth extraction Family History Family History Father Hypertension Prostate cancer Chronic mental illness Substance abuse Mother Low blood pressure Sister Heart disease Paternal Grandmother Breast cancer Paternal Aunt Breast cancer Family/Other Depression Social History Social History Housing: Apartment Alcohol intake: never Patient Tobacco Use Status: Never used Tobacco e-Cigarette/Vaping Use: Never Used Second Hand Smoke Exposure: No Advance Directives: No Advance Directives Information Provided: Yes service: No Current occupational status: employed Cognitive needs: No Hearing needs: No Vision needs: Yes Physical Exam Vital Signs: Vital Signs: Last Vital Signs Temp 97.8 F 08/05/22 20:18 Pulse 100 08/05/22 20:18 Resp 16 08/05/22 20:18 BP 110/62 08/05/22 20:18 Pulse Ox 100 08/05/22 20:29 O2 Del Method 08/05/22 20:29 BMI result Body Mass Index 29.8 Const: General: cooperative, healthy appearing, comfortable and no acute distress Orientation/consciousness: patient oriented x3 Limitations: no limitations HEENT: Head: Yes normal to inspection and Yes atraumatic Ears: hearing grossly normal bilaterally General nose exam: Normal external nose present Face and sinus: Yes normal facial exam Eyes: General: appearance normal, both eyes and all related structures EOM: EOMs intact bilaterally Neck: Neck: Yes normal visual inspection and Yes no meningeal signs Resp: Effort & Inspection: normal respiratory effort and no respiratory distress Auscultation: clear to auscultation bilaterally, no crackles, no rales, no rhonchi and no wheezes Cardio: Rate: regular rate Heart sounds: S1 normal heart sound present and S2 normal heart sound present Skin: Rashes: no rashes Wounds: no wounds Neuro: General: patient oriented x3, tone normal and no meningeal signs Gait exam (Neuro): Normal gait present Extrem: General: Yes normal to inspection, Yes no pedal edema and Yes no calf tenderness Course Course Course Narrative: RME--32yo F w/PMHx asthma, migraines, allergic rhinitis c/o SOB x 1 week. Using inhaler and machine at home without relief. Admits to starting Prednisone yesterday Sating 99% on RA, Lungs CTA COVID/Flu, CXR ordered -2008--COVID and influenza negative. CXR unremarkable -mild leukocytosis of 10.9. Labs otherwise unremarkable. Troponin negative -2029--patient ambulated with pulse ox maintaining saturation of 100% on room air. Results discussed with patient including worrisome signs and symptoms and strict return precautions, and when to return to the emergency department. They verbalized understanding and feel safe for discharge at this time. Medications Administered Discontinued Medications Generic Name Dose Route Start Last Admin Trade Name Freq PRN Reason Stop Dose Admin Albuterol Sulfate 2.5 mg 08/05/22 19:47 08/05/22 20:09 Albuterol Sulfate (0.083%) 2.5 Mg/3 Ml Vial.Neb INHALE 08/05/22 19:48 2.5 mg ONCE ONE Administration Medical Decision Making Medical Decision Making [facility] Narrative: 32-year-old female w/PMHx asthma, migraines, allergic rhinitis presenting to the ED c/o shortness of breath x 1 week. On exam vital signs stable, satting 99% on room air, lungs CTA, no pedal edema/calf tenderness. Concern for asthma exacerbation vs bronchitis. Rule out pneumonia. Lower suspicion for ACS/PE or DVT Plan: EKG, labs, CXR, COVID-19/influenza testing, DuoNeb, re-evaluate Please refer to course for remaining clinical decision making, interpretation of labs/imaging results, and discussions with consultants and/or family members. Differential Diagnosis Differential Diagnoses: The differential diagnosis associated with the presentation includes As above Admission/Observation Consideration of admission/observation: Escalation of care including admission/observation considered Lab Data [facility] Lab Attestation statement: I reviewed the patient's lab results. 08/05/22 19:52 08/05/22 19:53 Labs: Lab Results 08/05/22 08/05/22 08/05/22 Range/Units 18:27 18:27 19:52 WBC 10.9 H (4.8-10.8) X10*3/uL RBC 4.51 (4.20-5.50) X10*6/uL Hgb 13.8 (12.0-16.0) g/dl Hct 41.7 (37.0-47.0) % MCV 92.5 (80.0-98.0) fL MCH 30.6 (27.0-33.0) pg MCHC 33.1 (31.0-35.0) g/dl RDW 12.2 (11.0-16.0) % Plt Count 315 (160-400) X10*3/uL MPV 9.6 (9.4-12.3) fL Immature Gran % (Auto) 0.3 (0.0-0.4) % Neut % (Auto) 87.1 H (45-73) % Lymph % (Auto) 8.4 L (20-40) % [place] % (Auto) 4.1 (2-11) % Eos % (Auto) 0.0 (0-4) % Baso % (Auto) 0.1 (0-2) % Lymph # (Auto) 0.9 L (1.2-4.9) X10*3/uL [place] # (Auto) 0.5 (0.1-1.2) X10*3/uL Eos # (Auto) 0.0 (0.0-0.4) X10*3/uL Baso # (Auto) 0.0 (0.0-0.2) X10*3/uL Abs Immat Gran (auto) 0.03 (0.00-0.03) X10*3/uL Absolute Neuts (auto) 9.5 H (2.0-8.3) x10*3/uL Absolute Nucleated RBC 0.000 (0.0-0.012) X10*3/uL Nucleated RBC % (auto) 0.0 (0.0-0.2) /100WBC Sodium (135-145) mmol/L Potassium (3.3-5.1) mmol/L Chloride (96-108) mmol/L Carbon Dioxide (22-29) mmol/L Anion Gap (12-20) BUN (9-16) mg/dL Creatinine (0.5-1.4) mg/dL Estim Creat Clear Calc Estimated GFR Random Glucose (60-115) mg/dL Calcium (8.4-10.2) mg/dL Troponin I High Sens (<3.5-17.0) ng/L COVID-19 ([facility]) Negative (Negative) COVID-19 Clin Com See Note Influenza Type A (AIME) Negative (Negative) Influenza Type B (AIME) Negative (Negative) Influenza A & B Note See Note 08/05/22 08/05/22 Range/Units 19:52 19:53 WBC (4.8-10.8) X10*3/uL RBC (4.20-5.50) X10*6/uL Hgb (12.0-16.0) g/dl Hct (37.0-47.0) % MCV (80.0-98.0) fL MCH (27.0-33.0) pg MCHC (31.0-35.0) g/dl RDW (11.0-16.0) % Plt Count (160-400) X10*3/uL MPV (9.4-12.3) fL Immature Gran % (Auto) (0.0-0.4) % Neut % (Auto) (45-73) % Lymph % (Auto) (20-40) % [place] % (Auto) (2-11) % Eos % (Auto) (0-4) % Baso % (Auto) (0-2) % Lymph # (Auto) (1.2-4.9) X10*3/uL [place] # (Auto) (0.1-1.2) X10*3/uL Eos # (Auto) (0.0-0.4) X10*3/uL Baso # (Auto) (0.0-0.2) X10*3/uL Abs Immat Gran (auto) (0.00-0.03) X10*3/uL Absolute Neuts (auto) (2.0-8.3) x10*3/uL Absolute Nucleated RBC (0.0-0.012) X10*3/uL Nucleated RBC % (auto) (0.0-0.2) /100WBC Sodium 142 (135-145) mmol/L Potassium 4.7 (3.3-5.1) mmol/L Chloride 109 H (96-108) mmol/L Carbon Dioxide 24 (22-29) mmol/L Anion Gap 14 (12-20) BUN 13 (9-16) mg/dL Creatinine 0.69 (0.5-1.4) mg/dL Estim Creat Clear Calc 107.9 Estimated GFR > 60 Random Glucose 97 (60-115) mg/dL Calcium 9.4 (8.4-10.2) mg/dL Troponin I High Sens < 3.5 (<3.5-17.0) ng/L COVID-19 ([facility]) (Negative) COVID-19 Clin Com Influenza Type A (AIME) (Negative) Influenza Type B (AIME) (Negative) Influenza A & B Note Radiology Impression Discussion of test interpretation with radiology: I have reviewed the radiologist's reading. External Record Review External record reviewed: Inpatient record, Office record, Outpatient record, Prior outpatient labs, Prior outpatient radiology, Primary care record and Outside ED record Discharge Plan Discharge Clinical Impression: Asthma Patient Disposition: Home, Self-Care Instructions: Asthma (ED) Additional Instructions: Continue previously prescribed medications Your blood work and x-ray were reassuring you tested negative for COVID and the FLU If symptoms persist or worsen, you develop constant worsening shortness of breath, wheezing, chest pain return to the emergency department Prescriptions: New albuterol sulfate 90 mcg/actuation HFA aerosol inhaler 2 puff inhalation Q4-6H PRN (Reason: shortness of breath or wheezing) Qty: 6.7 0RF albuterol sulfate 2.5 mg/0.5 mL solution for nebulization 5 mg inhalation Q4H PRN (Reason: shortness of breath or wheezing) Qty: 30 0RF No Action Xolair 150 mg recon soln 150 mg subcut Q4W 30 Days Qty: 1 12RF albuterol sulfate 90 mcg/actuation HFA aerosol inhaler 2 puff inhalation Q6H PRN (Reason: shortness of breath or wheezing) 30 Days Qty: 8.5 1RF albuterol sulfate 0.63 mg/3 mL solution for nebulization 0.63 mg inhalation Q4-6H PRN (Reason: shortness of breath or wheezing) Qty: 180 1RF prednisone 10 mg tablet 40 mg PO DAILY 7 Days Qty: 28 0RF fluticasone propionate 50 mcg/actuation spray,suspension intranasal topiramate 25 mg tablet 25 mg PO DAILY sumatriptan succinate 50 mg tablet See Rx Instructions PO .COMPLEX Rx Instructions: take 1 tab at onset of headache; if no relief may repeat 1 tab after at least 2 hrs; max = 4 tabs/24 hr PO multivitamin Capsule 1 cap PO DAILY cetirizine 10 mg tablet 10 mg PO DAILY PRN (Reason: allergy symptoms) Qty: 30 6RF montelukast [Singulair] 10 mg tablet 10 mg PO DAILY 30 Days Qty: 30 6RF fluticasone propion-salmeterol [Advair Diskus] 250-50 mcg/dose blister with device 1 inh inhalation BID 30 Days Qty: 60 6RF Referrals: Jason Hanley MD [Primary Care Provider] - 3 days
[2022-08-05 18:53] LABS: COVID-19 Test Negative (Negative); IDNOW Serial# 55D5AD1C; IDNOW Serial# 6674DD1D; Influenza A Negative (Negative); Influenza B2 Negative (Negative)
--- NOTE | 2022-08-05 19:40 | PC.NURSE ---
pt c/o sob in last few days, chest pain started today, light headedness and numbness to bilat arms EKG to follow charge aware
--- NOTE | 2022-08-05 19:47 | ECG_ITS ---
Test Reason : chest pain Blood Pressure : / mmHG Vent. Rate : 074 BPM Atrial Rate : 074 BPM P-R Int : 118 ms QRS Dur : 074 ms QT Int : 372 ms P-R-T Axes : 033 033 053 degrees QTc Int : 412 ms Normal sinus rhythm with sinus arrhythmia Normal ECG When compared with ECG of 28-MAR-2020 13:54, No significant change was found Referred By: Paulette Sarah Electronically Signed By:Erasmo Mueller
[2022-08-05 19:57] LABS: MANUAL DIFF FLAG NO
[2022-08-05 19:58] LABS: Basophils Percent Auto 0.1 % (0-2); Hematocrit 41.7 % (37.0-47.0); Hemoglobin 13.8 g/dl (12.0-16.0); Imm Gran Abs Auto 0.03 X10*3/uL (0.00-0.03); Imm Gran Pct Auto 0.3 % (0.0-0.4); Lymphocytes Absolute Auto 0.9 X10*3/uL (1.2-4.9); Lymphocytes Percent Auto 8.4 % (20-40); Mean Corpuscular HGB Conc 33.1 g/dl (31.0-35.0); Mean Corpuscular Hemoglobin 30.6 pg (27.0-33.0); Mean Corpuscular Volume 92.5 fL (80.0-98.0); Mean Platelet Volume 9.6 fL (9.4-12.3); Monocytes Absolute Auto 0.5 X10*3/uL (0.1-1.2); Monocytes Percent Auto 4.1 % (2-11); Neutrophils Absolute Auto 9.5 x10*3/uL (2.0-8.3); Neutrophils Percent Auto 87.1 % (45-73); Platelet Count 315 X10*3/uL (160-400); Red Blood Count 4.51 X10*6/uL (4.20-5.50); Red Cell Distribution Width 12.2 % (11.0-16.0); White Blood Count 10.9 X10*3/uL (4.8-10.8)
[2022-08-05] MEDS: Albuterol Sulfate (0.083%) 2.5 MG/3 ML VIAL.NEB INHALE (20:09)
[2022-08-05 20:11] VITALS: PULSE 99; RESP 20; O2SAT 100
[2022-08-05 20:14] LABS: Anion Gap 14 (12-20); Blood Urea Nitrogen 13 mg/dL (9-16); Calcium 9.4 mg/dL (8.4-10.2); Carbon Dioxide 24 mmol/L (22-29); Chloride 109 mmol/L (96-108); Creatinine Clr Calc Pharmacy 107.9; Estimated Glomerular Filt Rate > 60; Glucose Random 97 mg/dL (60-115); Potassium 4.7 mmol/L (3.3-5.1); Sodium 142 mmol/L (135-145)
[2022-08-05 20:18] VITALS: BP 110/62; PULSE 100; RESP 16; TEMP 36.6; O2SAT 99
[2022-08-05 20:19] LABS: Troponin-I High Sensitivity < 3.5 ng/L (<3.5-17.0)
[2022-08-05 20:29] VITALS: O2SAT 100
--- NOTE | 2022-08-05 20:30 | MHC.EDTECH ---
Patient was ambulated with a walking o2 sat of 100% the lowest sat on ambulation was 96% then went right back up to 100%.Provider Paulette BUCK was made aware.
== END 2022-08-05 20:39 | disposition home or self-care (01) ==
PROVIDERS: Physician Assistant; Emergency Provider Internal Medicine; PCP Internal Medicine
DX: J45.909 Unspecified asthma, uncomplicated (principal); Z20.822 Contact with and (suspected) exposure to COVID-19
CPT/HCPCS: 36415; 71045; 80048; 84484; 85025; 87502; 87635; 93005; 94640; 99284

== ENCOUNTER 2022-08-21 08:19 | Outpatient (REF) | payer OTHER, MEDICAID, SELFPAY | END 2022-08-21 08:20 | disposition home or self-care (01) | LOC: HO.MDS 08:19 | PROVIDERS: Visit Provider Internal Medicine Pulmonary Disease | DX: J45.50 Severe persistent asthma, uncomplicated (principal) | CPT/HCPCS: 96372; J2357 ==

== ENCOUNTER 2022-09-19 08:27 | Outpatient (REF) | payer OTHER, MEDICAID, SELFPAY | END 2022-09-19 08:28 | disposition home or self-care (01) | LOC: HO.MDS 08:27 | PROVIDERS: Visit Provider Internal Medicine Pulmonary Disease | DX: J45.50 Severe persistent asthma, uncomplicated (principal) | CPT/HCPCS: 96372; J2357 ==

== ENCOUNTER 2022-10-17 08:25 | Outpatient (REF) | payer OTHER, MEDICAID, SELFPAY | END 2022-10-17 08:26 | disposition home or self-care (01) | LOC: HO.MDS 08:25 | PROVIDERS: Visit Provider Internal Medicine Pulmonary Disease | DX: J45.50 Severe persistent asthma, uncomplicated (principal) | CPT/HCPCS: 96372; J2357 ==

== ENCOUNTER 2022-11-14 08:34 | Outpatient (REF) | payer OTHER, MEDICAID, SELFPAY | END 2022-11-14 08:35 | disposition home or self-care (01) | LOC: HO.MDS 08:34 | PROVIDERS: Visit Provider Internal Medicine Pulmonary Disease | DX: J45.50 Severe persistent asthma, uncomplicated (principal) | CPT/HCPCS: 96372; J2357 ==

== ENCOUNTER 2022-12-03 12:34 | Emergency (ER) | payer OTHER, MEDICAID, SELFPAY ==
--- NOTE | 2022-12-03 13:17 | ED_ITS ---
HPI - General Adult General Chief complaint: Eye Problems Stated complaint: shingles in left eye Time Seen by Provider: 12/03/22 13:55 Source: patient Mode of arrival: ambulatory History of Present Illness HPI narrative: 32 yo female with a history of asthma presents to ED for evaluation of left eye pain and blurry vision x 1 day. Reports that yesterday night she developed pain in her left eye, and when she woke up this morning she noticed blisters in her inner upper eyelid, blurry vision, and sensitivity to light. Reports a 102F fever x 3 days ago, but is afebrile now. Reports a previous history of ocular shingles with last episode occurring in 2020 which was treated with Valtrex. Received Shingrix vaccine 1yr ago. She wears corrective lens. denies fever, chills, fatigue, ear pain or discharge, oral lesions, SOB, chest pain, abd pain, N/V/D, and burning or tingling sensations. Onset (ago): hour(s) Related Data Home Medications Medication Instructions Recorded Confirmed multivitamin 1 cap PO DAILY 03/09/20 10/14/22 fluticasone propionate 50 spray intranasal 03/25/21 10/14/22 mcg/actuation nasal spray,suspension sumatriptan succinate 50 mg tablet See Rx Instructions PO .COMPLEX 03/29/22 10/14/22 topiramate 25 mg tablet 25 mg PO DAILY 03/29/22 10/14/22 Previous Rx's Medication Instructions Recorded omalizumab 150 mg subcutaneous 150 mg subcut Q4W 30 days #1 ea 05/29/21 solution (Xolair) albuterol sulfate 90 mcg/actuation 2 puff inhalation Q6H PRN 04/18/22 aerosol inhaler shortness of breath or wheezing 30 days #8.5 grams fluticasone 250 mcg-salmeterol 50 1 inh inhalation BID 30 days #60 ea 07/29/22 mcg/dose blistr powdr for inhalation (Advair Diskus) montelukast 10 mg tablet 10 mg PO DAILY 30 days #30 tabs 07/29/22 (Singulair) albuterol sulfate 2.5 mg/0.5 mL 5 mg inhalation Q4H PRN shortness 08/05/22 solution for nebulization of breath or wheezing #30 ea albuterol sulfate 90 mcg/actuation 2 puff inhalation Q4-6H PRN 08/05/22 aerosol inhaler shortness of breath or wheezing #6.7 grams AIR PURIFIER #1 ea 09/08/22 albuterol sulfate 2.5 mg/3 mL 2.5 mg (3 mL) continuous 10/14/22 (0.083 %) solution for nebulization nebulization Q6-8H PRN shortness of breath or wheezing #180 mL cetirizine 10 mg tablet 10 mg PO DAILY PRN allergy 10/14/22 symptoms 90 days #90 tabs valacyclovir 1 gram tablet 1,000 mg PO TID 7 days #21 tabs 12/03/22 Allergies Allergy/AdvReac Type Severity Reaction Status Date / Time No Known Allergies Allergy Verified 12/03/22 13:18 [No Known Allergies*] Review of Systems Review of Systems: Constitutional: No Fever, No Chills, No Fatigue, No Malaise ENT/Mouth: No Ear Pain, No Nasal Congestion, No sore throat, No Rhinorrhea, No Swallowing Difficulty Eyes: + Eye Pain, No Swelling, + Redness, No Foreign Body, No Discharge, + Vision Changes Cardiovascular: No Chest Pain, No SOB Respiratory: No Cough, No Sputum, No Dyspnea Gastrointestinal: No Nausea, No Vomiting, No Abdominal pain, Musculoskeletal: No joint pain, No Myalgias, No Joint Swelling Skin: No Skin Lesions, No rash Neuro: No Weakness, No Dizziness, No Headache Yes all other systems are reviewed and are negative Constitutional: Constitutional: Reports as per [facility] Past Medical History Attestation statement: The following information was validated with the patient. Source: old records reviewed Medical History Allergic rhinitis Asthma Herpes zoster conjunctivitis of left eye Herpes zoster conjunctivitis, left eye Migraine Overweight (BMI 25.0-29.9) Parasomnia Restless leg syndrome Surgical History History of bladder surgery History of History of wisdom tooth extraction Family History Family History Father Hypertension Prostate cancer Chronic mental illness Substance abuse Mother Low blood pressure Sister Heart disease Paternal Grandmother Breast cancer Paternal Aunt Breast cancer Family/Other Depression Social History Social History Housing: Apartment Alcohol intake: never Patient Tobacco Use Status: Never used Tobacco e-Cigarette/Vaping Use: Never Used Second Hand Smoke Exposure: No Advance Directives: No Advance Directives Information Provided: No service: No Current occupational status: employed Cognitive needs: No Hearing needs: No Vision needs: Yes Physical Exam ED Vital Signs: Vital Signs - 24 hr 12/03/22 13:18 Temperature 98 F Pulse Rate 99 Respiratory Rate 16 Blood Pressure 131/83 Pulse Oximetry 99 Oxygen Delivery Method Room Air BMI result Body Mass Index 30.2 Const General: comfortable, no acute distress, alert and awake Orientation/consciousness: patient oriented x3 Limitations: no limitations HENMT Head: Yes normal to inspection, Yes normocephalic and Yes atraumatic Ears: hearing grossly normal bilaterally, external ears normal and TM's normal bilaterally General nose exam: Normal external nose present Face and sinus: Yes normal facial exam Mouth: Normal oral and palatal mucosa present, moist mucous membranes and no drooling Teeth and gingiva: gingiva normal Throat: Yes tonsils normal and Yes uvula midline Eyes Other: Left upper and lower eyelid mildly erythematous/irritated. + left upper eyelid with internal stye General: appearance normal, both eyes and all related structures Alignment and Position: alignment normal and position normal Periorbital: periorbital findings normal Eyelids: Yes eyelid abnormality Conjunctivae: conjunctival abnormal left conjunctival injection diffuse Corneas: fluorescein used (without uptake) Pupils: Equal, round and reactive pupils present EOM: EOMs intact bilaterally Direct Ophthalmoscopy: normal light reflex and no photophobia Neck Neck: Yes no lymphadenopathy and Yes no meningeal signs Resp Effort & Inspection: normal respiratory effort and able to speak in complete sentences Cardio Rate: regular rate Rhythm: regular rhythm Heart sounds: S1 normal heart sound present and S2 normal heart sound present Skin General skin exam: no rashes or lesions noted Rashes: no rashes Wounds: no wounds Neuro General: patient oriented x3 and no meningeal signs Cranial nerves: Yes Equal, round and reactive pupils present Cognition (Neuro): normal cognition Gait exam (Neuro): Normal gait present Extrem General: Yes full ROM, Yes no clubbing, cyanosis or edema and Yes no pedal edema Course Course Course Narrative: This is an RME: Additional HPI, ROS, PE not included below will be deferred to primary provider. Patient is a 32-year-old female with history of migraines, asthma, herpes zoster of left eye in 2020 presenting to the emergency department with complaint of left eye redness and irritation since this morning. Reports several prior episodes of HZ in left eye. Tried to see Dr. Hall this am but he was out sick, tried to see PCP who is on vacation. Has had cold symptoms for the prior 10 days. Also reporting blurred vision to left eye and nodules to upper eyelid. Medical Decision Making Medical Decision Making MDM Narrative: 32 yo female with a history of asthma presents to ED for evaluation of left eye pain and blurry vision x 1 day. On exam vital signs stable, NAD, nontoxic appearing, physical exam as above, left eye with diffuse conjunctival injection and upper eyelid internal hordeolum. Fluorescein use without uptake, no dendritic lesions. No evidence of Alexa Pretty. No facial rash or ulcerations. Mucous membranes WNL. EOMs intact without entrapment. No drainage. Evidence of globe rupture, preseptal or septal cellulitis. TMs WNL. Concern for possible herpes zoster ophthalmicus vs conjunctivitis vs hordeolum. Plan: Visual acuity, 20/30 to left affected eye, 20/20 non affected eye, fluorescein staining Case discussed with ED attending Dr. Wu who is in agreement with plan to initiate Valtrex and have close outpatient Ophthalmology follow-up. Patient follows with Dr. Hall Results discussed with patient including worrisome signs and symptoms and strict return precautions, and when to return to the emergency department. They verbalized understanding and feel safe for discharge at this time. Differential Diagnosis Differential Diagnoses: The differential diagnosis associated with the presentation includes As above Admission/Observation Consideration of admission/observation: Escalation of care including admission/observation considered External Record Review External record reviewed: Inpatient record, Office record, Outpatient record, Prior outpatient labs, Prior outpatient radiology, Primary care record and Outside ED record Tests considered The following testing was considered but not selected: As above Prescription Management I considered prescription management with: Antiviral Discharge Plan Discharge Clinical Impression: Herpes zoster conjunctivitis of left eye Patient Disposition: Home, Self-Care Instructions: Shingles (ED) Additional Instructions: Valtrex is antiviral medication please take as prescribed YOU NEED TO FOLLOW-UP WITH OPHTHALMOLOGY If symptoms persist or worsen, you have vision loss return to the ED Prescriptions: New valacyclovir 1 gram tablet 1,000 mg PO TID 7 Days Qty: 21 0RF No Action Xolair 150 mg recon soln 150 mg subcut Q4W 30 Days Qty: 1 12RF albuterol sulfate 90 mcg/actuation HFA aerosol inhaler 2 puff inhalation Q6H PRN (Reason: shortness of breath or wheezing) 30 Days Qty: 8.5 1RF (DME) AIR PURIFIER See Rx Instructions .Route .MEDSUPPLY Qty: 1 0RF Rx Instructions: As directed albuterol sulfate 90 mcg/actuation HFA aerosol inhaler 2 puff inhalation Q4-6H PRN (Reason: shortness of breath or wheezing) Qty: 6.7 0RF albuterol sulfate 2.5 mg/0.5 mL solution for nebulization 5 mg inhalation Q4H PRN (Reason: shortness of breath or wheezing) Qty: 30 0RF fluticasone propionate 50 mcg/actuation spray,suspension intranasal topiramate 25 mg tablet 25 mg PO DAILY sumatriptan succinate 50 mg tablet See Rx Instructions PO .COMPLEX Rx Instructions: take 1 tab at onset of headache; if no relief may repeat 1 tab after at least 2 hrs; max = 4 tabs/24 hr PO cetirizine 10 mg tablet 10 mg PO DAILY PRN (Reason: allergy symptoms) 90 Days Qty: 90 1RF albuterol sulfate 2.5 mg /3 mL (0.083 %) solution for nebulization 2.5 mg continuous nebulization Q6-8H PRN (Reason: shortness of breath or wheezing) Qty: 180 1RF multivitamin Capsule 1 cap PO DAILY montelukast [Singulair] 10 mg tablet 10 mg PO DAILY 30 Days Qty: 30 6RF fluticasone propion-salmeterol [Advair Diskus] 250-50 mcg/dose blister with device 1 inh inhalation BID 30 Days Qty: 60 6RF Referrals: Jorge A Hall [Physician] -
[2022-12-03 13:18] VITALS: BP 131/83; PULSE 99; RESP 16; TEMP 36.6; O2SAT 99; BMI 30.2
[2022-12-03] MEDS: Fluorescein Sodium STRIP 1 STRIP EYE-LEFT (15:51)
[2022-12-03] MEDS: Tetracaine HCl/PF 0.5% Oph Sol 4 ML DROPS 1 DROP EYE-LEFT (15:51)
== END 2022-12-03 15:53 | disposition home or self-care (01) ==
PROVIDERS: Emergency Provider Emergency Medicine; PCP Internal Medicine
DX: B02.31 Zoster conjunctivitis (principal); H57.12 Ocular pain, left eye
CPT/HCPCS: 99283; 99284

== ENCOUNTER 2022-12-11 08:15 | Outpatient (REF) | payer OTHER, MEDICAID, SELFPAY | END 2022-12-11 08:16 | disposition home or self-care (01) | LOC: HO.MDS 08:15 | PROVIDERS: Visit Provider Internal Medicine Pulmonary Disease | DX: J45.50 Severe persistent asthma, uncomplicated (principal) | CPT/HCPCS: 96372; J2357 ==

== ENCOUNTER 2023-01-08 08:15 | Outpatient (REF) | payer OTHER, MEDICAID, SELFPAY | END 2023-01-08 08:16 | disposition home or self-care (01) | LOC: HO.MDS 08:15 | PROVIDERS: Visit Provider Internal Medicine Pulmonary Disease | DX: J45.50 Severe persistent asthma, uncomplicated (principal) | CPT/HCPCS: 96372; J2357 ==

== ENCOUNTER 2023-01-08 10:03 | Outpatient (AMB) | payer OTHER, MEDICAID, SELFPAY ==
[2023-01-08 10:14] VITALS: BP 128/70; PULSE 73; O2SAT 99; BMI 31.4
--- NOTE | 2023-01-08 10:14 | A.OFFVIS_ITS ---
Intake Vital Signs 01/08/23 10:14 Height 5 ft 1 in Weight 166 lb 7.184 oz BMI 31.4 BP 128/70 Blood Pressure Location Rt brachial Position Sitting Pulse 73 Pulse Source Pulse Oximeter Pulse Oximetry (%) 99 Oxygen Delivery Method Room Air Intake Visit Reasons: Asthma Intake Note: Pt reports not getting the Advair from her last appointment. She has been feeling short of breath on exertion, chest tightness, but denies coughing and wheezing. [employer] Required: No Allergies No Known Allergies [No Known Allergies*] Allergy (Verified 01/08/23 10:22) HPI Asthma HPI Details 32-year-old nonsmoker, followed for underlying severe persistent allergic asthma.? Continues to use Xolair, Advair, Singulair and albuterol MDI. Control improved significantly after starting Xolair, however she still using albuterol MDI up to 3 times a day. She denies recent exacerbations. FORMERLY [facility], [facility] Medical History Allergic rhinitis Asthma Herpes zoster conjunctivitis of left eye Herpes zoster conjunctivitis, left eye Migraine Overweight (BMI 25.0-29.9) Parasomnia Restless leg syndrome Surgical History History of bladder surgery History of History of wisdom tooth extraction Family History Father Hypertension Prostate cancer Chronic mental illness Substance abuse Mother Low blood pressure Sister Heart disease Paternal Grandmother Breast cancer Paternal Aunt Breast cancer Family/Other Depression Social History Housing: Apartment Alcohol intake: never Patient Tobacco Use Status: Never used Tobacco e-Cigarette/Vaping Use: Never Used Second Hand Smoke Exposure: No service: No Current occupational status: employed Cognitive needs: No Hearing needs: No Vision needs: Yes Review of Systems Const Denies daytime sleepiness, Denies excessive sweating, Denies fatigue, Denies fever(s), Denies lethargy, Denies malaise, Denies night sweats, Denies snoring and Denies weight loss Eyes Denies blurry vision and Denies itchy eyes ENT Denies nasal congestion, Denies post nasal drip, Denies sinus pain, Denies sinus pressure and Denies other ( Thrush) Card Denies chest pain, Denies pedal edema, Denies dyspnea, Denies orthopnea and Denies paroxysmal nocturnal dyspnea Resp Denies cough, Denies hemoptysis, Denies excessive phlegm production, Denies dyspnea, Denies snoring and Denies wheezing GI Denies abdominal pain and Denies heartburn Musc Denies myalgias, Denies arthralgias and Denies joint swelling Skin/Breast Denies rash Neuro Denies memory loss and Denies seizure-like activity Psych Denies abnormal sleep pattern, Denies anxiety and Denies memory loss Endo Denies excessive sweating, Denies fatigue and Denies heat intolerance Leeroy/Lymph Denies easy bruising Aller/Immun Denies itchy eyes, Denies seasonal rhinorrhea and Denies wheezing Physical Exam Vital Signs: Last Vital Signs Pulse 73 01/08/23 10:14 BP 128/70 01/08/23 10:14 Pulse Ox 99 01/08/23 10:14 Oxygen Delivery Method Room Air 01/08/23 10:14 BMI result Body Mass Index 31.4 Const General: no acute distress and alert Nutritional Appearance: not obese Orientation/consciousness: Other orientation findings ( oriented) HEENT Head: Yes atraumatic Eyes General: appearance normal, both eyes and all related structures Sclerae: sclerae normal EOM: EOMs intact bilaterally Neck Neck: Yes supple Lymphatic: no lymphadenopathy noted Resp Effort & Inspection: normal respiratory effort and no use of accessory muscles Auscultation: clear to auscultation bilaterally Cardio Rate: regular rate Rhythm: regular rhythm Heart sounds: no gallops, no murmurs and no rubs Skin General skin exam: other ( warm) Extrem General: No clubbing, No cyanosis and No edema Assessment & Plan Assessment & Plan (1) Asthma: Code(s): J45.909 - Unspecified asthma, uncomplicated Plan: Improved baseline control on Xolair, however still using albuterol MDI up to 3 times a day. Will change Wixela to trilogy. Continue albuterol MDI/nebs. (2) Environmental allergies: Code(s): Z91.09 - Other allergy status, other than to drugs and biological substances Plan: Well controlled on Xolair and Singulair. Continue current regimen. Medications: New gxwicymsczn-uwqaltugw-xyopoqtu 200-62.5-25 mcg (Trelegy Ellipta) 1 inh inhalation DAILY 1 ea 6RF 30 days Discontinued fluticasone propion-salmeterol 250-50 mcg/dose (Advair Diskus) Discontinued Reason: Doctor's Order 1 inh inhalation BID 60 ea 6RF 30 days Coding Level of Care Code Est Pt Level 4 (09704) Diagnoses Asthma J45.909 Environmental allergies Z91.09
== END 2023-01-08 10:37 | disposition home or self-care (01) ==
PROVIDERS: PCP Internal Medicine; Visit Provider Internal Medicine Pulmonary Disease
DX: J45.909 Unspecified asthma, uncomplicated (principal); Z91.09 Other allergy status, other than to drugs and biological substances
CPT/HCPCS: 99214

== ENCOUNTER 2023-02-05 09:35 | Outpatient (REF) | payer OTHER, MEDICAID, SELFPAY | END 2023-02-05 09:36 | disposition home or self-care (01) | LOC: HO.MDS 09:35 | PROVIDERS: Visit Provider Internal Medicine Pulmonary Disease | DX: J45.50 Severe persistent asthma, uncomplicated (principal) | CPT/HCPCS: 96372; J2357 ==

== ENCOUNTER 2023-03-05 09:13 | Outpatient (REF) | payer OTHER, MEDICAID, SELFPAY | END 2023-03-05 09:14 | disposition home or self-care (01) | LOC: HO.MDS 09:13 | PROVIDERS: Visit Provider Internal Medicine Pulmonary Disease | DX: J45.50 Severe persistent asthma, uncomplicated (principal) | CPT/HCPCS: 96372; J2357 ==

== ENCOUNTER 2023-04-07 07:43 | Outpatient (REF) | payer OTHER, MEDICAID, SELFPAY | END 2023-04-07 07:44 | disposition home or self-care (01) | LOC: HO.MDS 07:43 | PROVIDERS: Visit Provider Internal Medicine Pulmonary Disease | DX: J45.50 Severe persistent asthma, uncomplicated (principal) | CPT/HCPCS: 96372; J2357 ==

== ENCOUNTER 2023-05-08 08:46 | Outpatient (REF) | payer OTHER, MEDICAID, SELFPAY | END 2023-05-08 08:47 | disposition home or self-care (01) | LOC: HO.MDS 08:46 | PROVIDERS: PCP Internal Medicine; Visit Provider Internal Medicine Pulmonary Disease | DX: J45.50 Severe persistent asthma, uncomplicated (principal) | CPT/HCPCS: 96372; J2357 ==

== ENCOUNTER 2023-06-05 09:01 | Outpatient (REF) | payer OTHER, MEDICAID, SELFPAY | END 2023-06-05 09:02 | disposition home or self-care (01) | LOC: HO.MDS 09:01 | PROVIDERS: Visit Provider Internal Medicine Pulmonary Disease | DX: J45.50 Severe persistent asthma, uncomplicated (principal) | CPT/HCPCS: 96372; J2357 ==

== ENCOUNTER 2023-06-23 09:06 | Outpatient (AMB) | payer OTHER, MEDICAID, SELFPAY ==
--- NOTE | 2023-06-23 09:08 | A.OFFVIS_ITS ---
Intake Vital Signs 06/23/23 09:10 Height 5 ft 1 in Weight 173 lb 1.006 oz BMI 32.7 BP 102/62 Blood Pressure Location Rt brachial Position Sitting Pulse 92 Pulse Source Doppler Pulse Oximetry (%) 83 L Oxygen Delivery Method Room Air Intake Visit Reasons: Asthma Allergies No Known Allergies [No Known Allergies*] Allergy (Verified 06/23/23 09:11) HPI Asthma HPI Details 33-year-old nonsmoker, followed for unde rlying severe persistent allergic asthma.? Continues to use Xolair, Trelegy, Singulair and albuterol MDI with good control of her underlying symptoms. She denies recent exacerbations. [facility] Medical History Allergic rhinitis Asthma Herpes zoster conjunctivitis of left eye Herpes zoster conjunctivitis, left eye Migraine Overweight (BMI 25.0-29.9) Parasomnia Restless leg syndrome Surgical History History of bladder surgery History of History of wisdom tooth extraction Family History Father Hypertension Prostate cancer Chronic mental illness Substance abuse Mother Low blood pressure Sister Heart disease Paternal Grandmother Breast cancer Paternal Aunt Breast cancer Family/Other Depression Social History Housing: Apartment Alcohol intake: never Patient Tobacco Use Status: Never used Tobacco e-Cigarette/Vaping Use: Never Used Second Hand Smoke Exposure: No service: No Current occupational status: employed Cognitive needs: No Hearing needs: No Vision needs: Yes Review of Systems Const Denies daytime sleepiness, Denies excessive sweating, Denies fatigue, Denies fever(s), Denies lethargy, Denies malaise, Denies night sweats, Denies snoring and Denies weight loss Eyes Denies blurry vision and Denies itchy eyes ENT Denies nasal congestion, Denies post nasal drip, Denies sinus pain, Denies sinus pressure and Denies other ( Thrush) Card Denies chest pain, Denies pedal edema, Denies dyspnea, Denies orthopnea and Denies paroxysmal nocturnal dyspnea Resp Denies cough, Denies hemoptysis, Denies excessive phlegm production, Denies dyspnea, Denies snoring and Denies wheezing GI Denies abdominal pain and Denies heartburn Musc Denies myalgias, Denies arthralgias and Denies joint swelling Skin/Breast Denies rash Neuro Denies memory loss and Denies seizure-like activity Psych Denies abnormal sleep pattern, Denies anxiety and Denies memory loss Endo Denies excessive sweating, Denies fatigue and Denies heat intolerance Leeroy/Lymph Denies easy bruising Aller/Immun Denies itchy eyes, Denies seasonal rhinorrhea and Denies wheezing Physical Exam Vital Signs: Last Vital Signs Pulse 92 06/23/23 09:10 BP 102/62 06/23/23 09:10 Pulse Ox 83 L 06/23/23 09:10 Oxygen Delivery Method Room Air 06/23/23 09:10 BMI result Body Mass Index 32.7 Const General: no acute distress and alert Nutritional Appearance: not obese Orientation/consciousness: Other orientation findings ( oriented) HEENT Head: Yes atraumatic Eyes General: appearance normal, both eyes and all related structures Sclerae: sclerae normal EOM: EOMs intact bilaterally Neck Neck: Yes supple Lymphatic: no lymphadenopathy noted Resp Effort & Inspection: normal respiratory effort and no use of accessory muscles Auscultation: clear to auscultation bilaterally Cardio Rate: regular rate Rhythm: regular rhythm Heart sounds: no gallops, no murmurs and no rubs Skin General skin exam: other ( warm) Extrem General: No clubbing, No cyanosis and No edema Assessment & Plan Assessment & Plan (1) Asthma: Code(s): J45.909 - Unspecified asthma, uncomplicated Plan: Well controlled on current regimen. Continue Xolair, Trelegy, and albuterol MDI/nebs. (2) Environmental allergies: Code(s): Z91.09 - Other allergy status, other than to drugs and biological substances Plan: Well controlled on Xolair. Will trial off Singulair and Zyrtec. Medications: Refilled albuterol sulfate 90 mcg/actuation 2 puffs inhalation Q4-6H PRN 6.7 grams 6RF shortness of breath or wheezing cbslzjetbmd-wwbtshizr-rbeghcix 200-62.5-25 mcg (Trelegy Ellipta) 1 inh inhalation DAILY 1 ea 6RF 30 days Coding Level of Care Code Est Pt Level 4 (16011) Diagnoses Moderate persistent asthma, unspecified whether complicated J45.909 Environmental allergies Z91.09
[2023-06-23 09:10] VITALS: BP 102/62; PULSE 92; O2SAT 83; BMI 32.7
== END 2023-06-23 09:30 | disposition home or self-care (01) ==
PROVIDERS: PCP Internal Medicine; Visit Provider Internal Medicine Pulmonary Disease
DX: J45.909 Unspecified asthma, uncomplicated (principal); Z91.09 Other allergy status, other than to drugs and biological substances
CPT/HCPCS: 99214

== ENCOUNTER → 2023-06-23 09:06 | Outpatient (BNVA) | payer OTHER, MEDICAID, SELFPAY | PROVIDERS: PCP Internal Medicine; Visit Provider Internal Medicine Pulmonary Disease ==

== ENCOUNTER 2023-07-03 08:44 | Outpatient (REF) | payer OTHER, MEDICAID, SELFPAY | END 2023-07-03 08:45 | disposition home or self-care (01) | LOC: HO.MDS 08:44 | PROVIDERS: Visit Provider Internal Medicine Pulmonary Disease | DX: J45.50 Severe persistent asthma, uncomplicated (principal) | CPT/HCPCS: 96372; J2357 ==